=== PATIENT | female | born 1990 | race American Indian/Alaskan Native ===

== ENCOUNTER 2016-08-08 13:55 | Emergency (ER) | payer SELFPAY ==
--- NOTE | 2016-08-08 18:06 | Emergency Department Report ---
ED ENT HPI - General Chief complaint: Sore Throat Stated complaint: SORE THROAT /SWOLLEN Time Seen by Provider: 08/08/16 18:02 Source: patient Mode of arrival: Ambulatory Limitations: No Limitations - History of Present Illness -: Gradual Location: throat Severity scale (0 -10): 5 Quality: burning - Related Data Previous Rx's Medication Instructions Recorded Last Taken Type Promethazine [Phenergan TAB] 25 mg PO Q6HR PRN #15 tab 08/08/16 Unknown Rx RX: Amoxicillin [Amoxicillin TAB] 875 mg PO BID #20 tablet 08/08/16 Unknown Rx RX: Prednisone [predniSONE] 50 mg PO QDAY #5 tab 08/08/16 Unknown Rx Allergies Allergy/AdvReac Type Severity Reaction Status Date / Time No Known Allergies Allergy Verified 08/08/16 15:10 ED Dental HPI - General Chief complaint: Sore Throat Stated complaint: SORE THROAT /SWOLLEN Time Seen by Provider: 08/08/16 18:02 Source: patient Mode of arrival: Ambulatory Limitations: No Limitations - History of Present Illness MD complaint: sore throat -: Gradual Severity: moderate Quality: burning Worsens with: swallowing Dental Associated Symptons: Yes: Headache, Sore Throat - Related Data Previous Rx's Medication Instructions Recorded Last Taken Type Promethazine [Phenergan TAB] 25 mg PO Q6HR PRN #15 tab 08/08/16 Unknown Rx RX: Amoxicillin [Amoxicillin TAB] 875 mg PO BID #20 tablet 08/08/16 Unknown Rx RX: Prednisone [predniSONE] 50 mg PO QDAY #5 tab 08/08/16 Unknown Rx Allergies Allergy/AdvReac Type Severity Reaction Status Date / Time No Known Allergies Allergy Verified 08/08/16 15:10 ED Review of Systems ROS: Stated complaint: SORE THROAT /SWOLLEN Other details as noted in HPI Constitutional: chills, fever, malaise Eyes: as per HPI ENT: throat pain Respiratory: no symptoms reported Cardiovascular: as per HPI Endocrine: no symptoms reported Gastrointestinal: nausea. denies: vomiting Neurological: headache. denies: abnormal gait, vertigo ED Past Medical Hx - Past Medical History Previous Medical History?: No - Surgical History Past Surgical History?: No - Social History Smoking Status: Former Smoker Substance Use Type: None - Medications Home Medications: Home Medications Medication Instructions Recorded Confirmed Last Taken Type Promethazine [Phenergan TAB] 25 mg PO Q6HR PRN #15 tab 08/08/16 Unknown Rx RX: Amoxicillin [Amoxicillin TAB] 875 mg PO BID #20 tablet 08/08/16 Unknown Rx RX: Prednisone [predniSONE] 50 mg PO QDAY #5 tab 08/08/16 Unknown Rx ED Physical Exam - General Limitations: No Limitations General appearance: alert, in no apparent distress - Head Head exam: Present: atraumatic, normocephalic - Eye Eye exam: Present: normal appearance - ENT ENT exam: Present: mucous membranes moist - Expanded ENT Exam Expanded Throat exam: Positive: tonsillar erythema, tonsillar exudate. Negative: R peritonsillar mass, L peritonsillar mass - Neck Neck exam: Present: normal inspection - Respiratory Respiratory exam: Present: normal lung sounds bilaterally. Absent: respiratory distress - Cardiovascular Cardiovascular Exam: Present: regular rate, normal rhythm. Absent: systolic murmur, diastolic murmur, rubs, gallop - GI/Abdominal GI/Abdominal exam: Present: soft, normal bowel sounds - Extremities Exam Extremities exam: Present: normal inspection - Back Exam Back exam: Present: normal inspection - Neurological Exam Neurological exam: Present: alert, oriented X3 - Psychiatric Psychiatric exam: Present: normal affect, normal mood - Skin Skin exam: Present: warm, dry, intact, normal color. Absent: rash ED Course Vital Signs 08/08/16 08/08/16 15:12 18:24 Temperature 99.1 F 98.6 F Pulse Rate 88 78 Respiratory 18 18 Rate Blood Pressure 146/84 Blood Pressure 121/79 [Left] O2 Sat by Pulse 99 95 Oximetry Critical care attestation.: If time is entered above; I have spent that time in minutes in the direct care of this critically ill patient, excluding procedure time. ED Disposition Clinical Impression: Tonsillitis with exudate Disposition: DISCHARGED TO HOME OR SELFCARE Is pt being admited?: No Condition: Stable Instructions: Tonsillitis (ED) Prescriptions: RX: Amoxicillin [Amoxicillin TAB] 875 mg PO BID #20 tablet RX: Prednisone [predniSONE] 50 mg PO QDAY #5 tab Promethazine [Phenergan TAB] 25 mg PO Q6HR PRN #15 tab PRN Reason: Nausea Referrals: PRIMARY CARE,MD [Primary Care Provider] - 3-5 Days Forms: Work/School Release Form(ED)
[2016-08-08] MEDS ORDERED: ROCEPHIN IM ONE (18:11)
[2016-08-08] MEDS ORDERED: XYLOCAINE 1% MPF 5 mL INFILTRATI ONE (18:11)
[2016-08-08 18:25] VITALS: BP 121/79
== END 2016-08-08 18:42 | disposition home or self-care (01) ==
LOC: ED 13:55
DX: J03.90 Acute tonsillitis, unspecified (principal); Z87.891 Personal history of nicotine dependence
CPT/HCPCS: 96372; 99282; J0696

== ENCOUNTER 2016-11-09 11:59 | Emergency (ER) | payer OTHER ==
[2016-11-09] MEDS ORDERED: DUONEB 0.5 MG-3 MG/3 ML SOLN IH ONE (14:11)
--- NOTE | 2016-11-09 14:16 | Emergency Department Report ---
ED General Adult HPI - General Chief complaint: Upper Respiratory Infection Stated complaint: WEAKNESS/NAUSEA/CHEST CONGESTION Time Seen by Provider: 11/09/16 13:49 Source: patient Mode of arrival: Ambulatory Limitations: No Limitations - History of Present Illness Initial comments: PT c/o cough and congestion x 1 week. PT states she had gradually been feeling more fatigued. PT states she has been coughing up green sputum. 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 PT states yesterday she could only work half a day. PT states last night she slept 13 hours and that is when she thought she should seek medical treatment. PT states she has a hx of bronchitis and she can hear herself wheeze. PT has a hx of tobacco abuse but states she quit a while ago. Complaint: c/c/c Onset/Timin -: Gradual, week(s) Location: chest Severity scale (0 -10): 5 Consistency: constant Improves with: none Worsens with: other (working ) Associated Symptoms: denies: fever/chills, nausea/vomiting, shortness of breath Treatments Prior to Arrival: none - Related Data Previous Rx's Medication Instructions Recorded Last Taken Type Albuterol Sulfate [Ventolin HFA] 2 puff IH Q4H PRN #1 hfa.aer.ad 11/09/16 Unknown Rx Benzonatate [Tessalon Perles] 100 mg PO Q8HR PRN #12 capsule 11/09/16 Unknown Rx Sulfamethoxazole/Trimethoprim 1 each PO BID #14 tablet 11/09/16 Unknown Rx [Bactrim DS TAB] Allergies Allergy/AdvReac Type Severity Reaction Status Date / Time No Known Allergies Allergy Verified 11/09/16 12:25 ED Review of Systems ROS: Stated complaint: WEAKNESS/NAUSEA/CHEST CONGESTION Other details as noted in HPI Comment: All other systems reviewed and negative Constitutional: malaise, other (fatigue ). denies: fever ENT: congestion. denies: throat pain Respiratory: cough, wheezing. denies: shortness of breath Endocrine: increased urine. denies: increased thirst (pt states she drinks a lot of water because she works outside ) Gastrointestinal: nausea. denies: abdominal pain, vomiting Genitourinary: frequency. denies: dysuria, abnormal menses (but states she could be ) Musculoskeletal: denies: back pain ED Past Medical Hx - Past Medical History Previous Medical History?: No - Surgical History Past Surgical History?: No - Social History Smoking Status: Former Smoker Substance Use Type: None - Medications Home Medications: Home Medications Medication Instructions Recorded Confirmed Last Taken Type Albuterol Sulfate [Ventolin HFA] 2 puff IH Q4H PRN #1 hfa.aer.ad 11/09/16 Unknown Rx Benzonatate [Tessalon Perles] 100 mg PO Q8HR PRN #12 capsule 11/09/16 Unknown Rx Sulfamethoxazole/Trimethoprim 1 each PO BID #14 tablet 11/09/16 Unknown Rx [Bactrim DS TAB] ED Physical Exam - General Limitations: No Limitations General appearance: alert, in no apparent distress - Head Head exam: Present: atraumatic, normocephalic, normal inspection, other (no sinus tenderness ) - Eye Eye exam: Present: normal appearance, PERRL, EOMI. Absent: conjunctival injection - ENT ENT exam: Present: normal exam, normal orophraynx, mucous membranes moist, TM's normal bilaterally, normal external ear exam - Neck Neck exam: Present: normal inspection, full ROM - Respiratory Respiratory exam: Present: rhonchi (LLL ), decreased breath sounds (RLL ). Absent: respiratory distress, wheezes, chest wall tenderness, accessory muscle use - Expanded Respiratory Exam Expanded Location: Rhonchi: Left, Lower, Decreased Breath Sounds: Right, Lower - Cardiovascular Cardiovascular Exam: Present: regular rate, normal rhythm, normal heart sounds - GI/Abdominal GI/Abdominal exam: Present: soft. Absent: tenderness - Extremities Exam Extremities exam: Present: normal inspection, full ROM - Back Exam Back exam: Present: normal inspection, full ROM. Absent: tenderness, CVA tenderness (R), CVA tenderness (L), muscle spasm, paraspinal tenderness - Neurological Exam Neurological exam: Present: alert, oriented X3, CN II-XII intact, normal gait - Psychiatric Psychiatric exam: Present: normal affect, normal mood - Skin Skin exam: Present: warm, dry, intact ED Course Vital Signs 11/09/16 11/09/16 11/09/16 12:25 14:46 14:53 Temperature 98.7 F Pulse Rate 79 Pulse Rate [ 82 80 Anterior Bilateral Throughout] Respiratory 18 Rate Respiratory 20 18 Rate [Anterior Bilateral Throughout] Blood Pressure 133/68 Blood Pressure [Left] O2 Sat by Pulse 100 Oximetry 11/09/16 16:18 Temperature 97.8 F Pulse Rate 85 Pulse Rate [ Anterior Bilateral Throughout] Respiratory 16 Rate Respiratory Rate [Anterior Bilateral Throughout] Blood Pressure Blood Pressure 118/69 [Left] O2 Sat by Pulse 100 Oximetry - Reevaluation(s) Reevaluation #1: 11/09/16 14:17 PT aware of plan of care. No questions at this time. Reevaluation #2: 11/09/16 16:07 PT aware of xr and lab results. PT states she is feeling better sp neb. pt's lung sounds improved. pt given strict return precautions. PT has no questions at this time. - Pulse Oximetry Interpretation Digit-Finger Initial Pulse Oximetry Readin Actions Taken: none ED Medical Decision Making - Radiology Data Radiology results: report reviewed CXR_ NAP - Differential Diagnosis pna, bronchitis, uti, Critical Care Time: No Critical care attestation.: If time is entered above; I have spent that time in minutes in the direct care of this critically ill patient, excluding procedure time. ED Disposition Clinical Impression: Acute bronchitis Qualifiers: Bronchitis organism: unspecified organism Qualified Code(s): J20.9 - Acute bronchitis, unspecified UTI (urinary tract infection) Qualifiers: Urinary tract infection type: site unspecified Hematuria presence: without hematuria Qualified Code(s): N39.0 - Urinary tract infection, site not specified Disposition: - TO HOME OR SELFCARE Is pt being admited?: No Does the pt Need Aspirin: No Condition: Stable Instructions: Urinary Tract Infection in Women (ED), Acute Bronchitis (ED) Additional Instructions: rest increase fluids return to ed if worsening, vomiting, back pain, fevers or concerns Prescriptions: Albuterol Sulfate [Ventolin HFA] 2 puff IH Q4H PRN #1 hfa.aer.ad PRN Reason: Shortness Of Breath Benzonatate [Tessalon Perles] 100 mg PO Q8HR PRN #12 capsule PRN Reason: Cough Sulfamethoxazole/Trimethoprim [Bactrim DS TAB] 1 each PO BID #14 tablet Referrals: PRIMARY CARE, [Primary Care Provider] - 3-5 Days CRISTIANE CHAN MD [Staff Physician] - 3-5 Days [facility] [Outside] - 3-5 Days Forms: Work/School Release Form(ED) Time of Disposition: 16:10
[2016-11-09 14:39] LABS: Bacteria,Urine 1+ /HPF (Negative); Bilirubin,Urine NEG (Negative); Blood,Urine NEG (Negative); Ketones,Urine NEG (Negative); Leukocyte Esterase,Urine LG (Negative); Mucus,Urine 2+ /HPF; Nitrite,Urine NEG (Negative); Protein,Urine <15 mg/dL mg/dL (Negative); Urobilinogen,Urine < 2.0 mg/dL (<2.0)
--- NOTE | 2016-11-09 16:04 | XRay Report ---
FINAL REPORT EXAM: XR CHEST ROUTINE 2V HISTORY: productive cough, rhonchi TECHNIQUE: 2 view examination of the chest PRIORS: None FINDINGS: Slight thoracic spine curvature with lower right apex. Nonspecific straightening of the thoracic kyphosis. There is no visible pulmonary consolidation, pleural effusion, or pneumothorax. Cardiac silhouette size is normal without vascular congestion. No visible acute pathology in the regional skeleton. IMPRESSION: No evidence of acute cardiopulmonary disease
[2016-11-09 16:19] VITALS: BP 118/69
== END 2016-11-09 16:21 | disposition home or self-care (01) ==
LOC: ED 11:59
DX: J20.9 Acute bronchitis, unspecified (principal); N39.0 Urinary tract infection, site not specified; Z87.891 Personal history of nicotine dependence
CPT/HCPCS: 71020; 81001; 81025; 94640; 99284

== ENCOUNTER 2017-12-02 18:40 | Emergency (ER) | payer OTHER ==
[2017-12-02 19:09] VITALS: BP 155/73
[2017-12-03] MEDS ORDERED: BENADRYL PO ONE (00:14)
[2017-12-03] MEDS ORDERED: REGLAN PO ONE (00:14)
[2017-12-03] MEDS ORDERED: ULTRAM PO ONE (00:14)
[2017-12-03] MEDS ORDERED: DECADRON IM ONE (00:14)
--- NOTE | 2017-12-03 00:49 | Emergency Department Report ---
ED Headache HPI - General Chief Complaint: Headache Stated Complaint: CHRONIC HEAD ACHE Time Seen by Provider: 12/03/17 00:14 Source: patient, RN notes reviewed - History of Present Illness Initial Comments: Patient's 27-year-old Afro-[place] female who presents for tension headache 1 week headache is intermittent for 10 pain with mild photophobia and nausea no vomiting no fever chills no dizziness or lightheadedness. Patient does have a history of headaches similar in the past generally treated with NSAIDs however not improving symptoms at this time. Timing/Duration: 1 week Quality: moderate Head Injury Location: frontal Recent Head Trauma: frequent headaches, chronic headaches Modifying Factors: improves with: other Associated Symptoms: fatigue, facial pain, fever/chills Allergies/Adverse Reactions: Allergies No Known Allergies Allergy (Verified 11/09/16 12:25) Home Medications: Ambulatory Orders Albuterol Sulfate [Ventolin HFA] 2 puff IH Q4H PRN #1 hfa.aer.ad 11/09/16 Benzonatate [Tessalon Perles] 100 mg PO Q8HR PRN #12 capsule 11/09/16 Sulfamethoxazole/Trimethoprim [Bactrim DS TAB] 1 each PO BID #14 tablet Metoclopramide [Reglan] 10 mg PO TID PRN #21 tab 12/03/17 diphenhydrAMINE [Benadryl CAP] 25 mg PO Q6HR PRN #21 capsule 12/03/17 traMADol [Ultram] 50 mg PO Q6HR PRN #15 tablet 12/03/17 ED Review of Systems ROS: Stated complaint: CHRONIC HEAD ACHE Other details as noted in HPI Constitutional: denies: chills, fever Eyes: denies: eye pain, eye discharge, vision change ENT: denies: ear pain, throat pain Respiratory: denies: cough, shortness of breath, wheezing Cardiovascular: denies: chest pain, palpitations Endocrine: no symptoms reported Gastrointestinal: vomiting, constipation, hematemesis, melena, hematochezia, other. denies: abdominal pain, nausea, diarrhea Genitourinary: denies: urgency, dysuria, discharge Musculoskeletal: denies: back pain, joint swelling, arthralgia Skin: denies: rash, lesions Neurological: denies: headache, weakness, paresthesias Psychiatric: denies: anxiety, depression Hematological/Lymphatic: denies: easy bleeding, easy bruising ED Past Medical Hx - Past Medical History Additional medical history: preeclampsia - Surgical History Past Surgical History?: No - Social History Smoking Status: Former Smoker Substance Use Type: None - Medications Home Medications: Home Medications Medication Instructions Recorded Confirmed Last Taken Type Albuterol Sulfate [Ventolin HFA] 2 puff IH Q4H PRN #1 hfa.aer.ad 11/09/16 Unknown Rx Benzonatate [Tessalon Perles] 100 mg PO Q8HR PRN #12 capsule 11/09/16 Unknown Rx Sulfamethoxazole/Trimethoprim 1 each PO BID #14 tablet 11/09/16 Unknown Rx [Bactrim DS TAB] Metoclopramide [Reglan] 10 mg PO TID PRN #21 tab 12/03/17 Unknown Rx diphenhydrAMINE [Benadryl CAP] 25 mg PO Q6HR PRN #21 capsule 12/03/17 Unknown Rx traMADol [Ultram] 50 mg PO Q6HR PRN #15 tablet 12/03/17 Unknown Rx ED Physical Exam - General Limitations: No Limitations General appearance: alert, in no apparent distress - Head Head exam: Present: normocephalic, normal inspection - Eye Eye exam: Present: normal appearance, PERRL, EOMI Pupils: Present: normal accommodation - ENT ENT exam: Present: normal exam, normal orophraynx, mucous membranes moist, TM's normal bilaterally, normal external ear exam - Expanded ENT Exam Expanded Mouth exam: Present: tongue normal. Absent: tongue elevation Throat exam: Positive: normal inspection. Negative: tonsillar erythema, tonsillomegaly, tonsillar exudate, R peritonsillar mass, L peritonsillar mass - Neck Neck exam: Present: normal inspection, tenderness, full ROM. Absent: meningismus, lymphadenopathy - Respiratory Respiratory exam: Present: normal lung sounds bilaterally. Absent: respiratory distress - Cardiovascular Cardiovascular Exam: Present: regular rate, normal rhythm. Absent: systolic murmur, diastolic murmur, rubs, gallop - GI/Abdominal GI/Abdominal exam: Present: soft, normal bowel sounds. Absent: distended, tenderness, guarding, rebound, rigid, organomegaly, mass, bruit, pulsatile mass , hernia - Rectal Rectal exam: Present: deferred - External exam: Present: normal external exam - Extremities Exam Extremities exam: Present: normal inspection - Back Exam Back exam: Present: normal inspection, full ROM, muscle spasm, rash noted. Absent: tenderness, CVA tenderness (R), CVA tenderness (L) - Neurological Exam Neurological exam: Present: alert, oriented X3, CN II-XII intact, normal gait, reflexes normal. Absent: motor sensory deficit - Expanded Neurological Exam Expanded Patient oriented to: Present: person, place, time Speech: Present: fluid speech Cranial nerves: EOM's Intact: Normal, Gag Reflex: Normal, Tongue Deviation: Normal, Nystagmus: Normal, Facial Sensation: Normal, Facial Palsy with Forehead Movement: Normal, Facial Palsy without Forehead Movement: Normal Cerebellar function: Finger to Nose: Normal, Heel to Chambers: Normal, Romberg: Normal Upper motor neuron: Karan Neglect: Normal, Pronator Drift: Normal, Babinski Sign : Normal, Sensory Extinction: Normal Sensory exam: Upper Extremity Light Touch: Normal, Upper Extremity Pin Prick: Normal, Upper Extremity Temperature: Normal, UE 2 Point Discrimination: Normal, Lower Extremity Light Touch: Normal, Lower Extremity Pin Prick: Normal, Lower Extremity Temperature: Normal, LE 2 Point Discrimination: Normal Motor strength exam: RUE: 5, LUE: 5, RLE: 5, LLE: 5 DTR: bicep (R): 2+, bicep (L): 2+, tricep (R): 2+, tricep (L): 2+, knee (R): 2+ , knee (L): 2+, ankle (R): 2+, ankle (L): 2+ Best Eye Response (Rachel): (4) open spontaneously Best Motor Response (Cherry): (6) obeys commands Best Verbal Response (Rachel): (5) oriented Cherry Total: 15 - Psychiatric Psychiatric exam: Present: normal affect, normal mood - Skin Skin exam: Present: warm, dry, intact, normal color. Absent: rash ED Course Vital Signs 12/02/17 19:05 Temperature 98.5 F Pulse Rate 86 Respiratory 18 Rate Blood Pressure 155/73 O2 Sat by Pulse 98 Oximetry ED Medical Decision Making - Medical Decision Making . He was improved is no dizziness no lightheadedness no fever no chills no nausea plan DC home prescription for Benadryl Reglan Ultram pt will follow up wtih pcp in 2-3 days Critical care attestation.: If time is entered above; I have spent that time in minutes in the direct care of this critically ill patient, excluding procedure time. ED Disposition Clinical Impression: Headache Qualifiers: Headache type: tension-type Headache chronicity pattern: episodic headache Intractability: intractable Qualified Code(s): G44.211 - Episodic tension-type headache, intractable Disposition: - TO HOME OR SELFCARE Is pt being admited?: No Does the pt Need Aspirin: No Condition: Good Instructions: Tension Headache (ED), Migraine Headache (ED) Prescriptions: diphenhydrAMINE [Benadryl CAP] 25 mg PO Q6HR PRN #21 capsule PRN Reason: Headache Metoclopramide [Reglan] 10 mg PO TID PRN #21 tab PRN Reason: Headache traMADol [Ultram] 50 mg PO Q6HR PRN #15 tablet PRN Reason: Pain Referrals: [facility] [Outside] - 3-5 Days Forms: Work/School Release Form(ED) Time of Disposition: 01:06
== END 2017-12-03 02:10 | disposition home or self-care (01) ==
LOC: ED 18:40
DX: G44.211 Episodic tension-type headache, intractable (principal); R11.0 Nausea; Z87.891 Personal history of nicotine dependence
CPT/HCPCS: 96372; 99282; J1100

== ENCOUNTER 2018-07-03 19:01 | Emergency (ER) | payer OTHER, MEDICAID ==
[2018-07-03 20:12] LABS: Basophils # (Auto) 0.1 K/mm3 (0.0-0.1); Basophils % (Auto) 0.5 % (0.0-1.8); Eosinophils % (Auto) 0.2 % (0.0-4.3); Hematocrit 36.7 % (30.3-42.9); Lymphocytes # (Auto) 2.5 K/mm3 (1.2-5.4); Lymphocytes % (Auto) 20.8 % (13.4-35.0); Mean Corpuscular HGB Conc 36 % (30-34); Mean Corpuscular Volume 85 fl (79-97); Monocytes % (Auto) 8.7 % (0.0-7.3); Platelet Count 307 K/mm3 (140-440); Red Blood Count 4.34 M/mm3 (3.65-5.03); Red Cell Distribution Width 13.7 % (13.2-15.2)
[2018-07-03 20:45] LABS: BUN/Creatinine Ratio 16; Blood Urea Nitrogen 11 mg/dL (7-17); Calcium 9.2 mg/dL (8.4-10.2); Hemolysis Index 3
--- NOTE | 2018-07-03 20:55 | Emergency Department Report ---
ED N/V/D HPI - General Chief complaint: Nausea/Vomiting/Diarrhea Stated complaint: 6WKS /VOMIITNG/DIZZY Time Seen by Provider: 07/03/18 20:54 Source: patient, family Mode of arrival: Ambulatory Limitations: No Limitations - History of Present Illness Initial comments: This is a 28-year-old female here with her who complained of nausea, v omiting 1 yesterday and 2 today. She says she has constant nausea since yesterday. She is reporting dizziness and weakness. Denies any fever or chills. Denies any back pain. Denies any abdominal pain. Denies any vaginal bleeding or discharge. Denies any urinary burning, frequency or urgency. Patient reports that she is 6 weeks and she has an appointment with my [facility] on 07/14 2018. She says she did not take any medication. Pain is 0/10. MD complaint: nausea, vomiting Onset/Timin -: days(s) Description of Vomiting: food contents Associated Abdominal Pain: No Pain Scale: 0 Worsens with: other (nausea and vomiting without any pain) Context: other ( at 6 weeks) Associated Symptoms: loss of appetite, nausea/vomiting. denies: myalgias, chest pain, cough, diaphoresis, fever/chills, headaches, malaise, rash, dysuria, shortness of breath, syncope, weakness - Related Data Previous Rx's Medication Instructions Recorded Last Taken Type Albuterol Sulfate [Ventolin HFA] 2 puff IH Q4H PRN #1 hfa.aer.ad 11/09/16 Unknown Rx Benzonatate [Tessalon Perles] 100 mg PO Q8HR PRN #12 capsule 11/09/16 Unknown Rx Sulfamethoxazole/Trimethoprim 1 each PO BID #14 tablet 11/09/16 Unknown Rx [Bactrim DS TAB] Metoclopramide [Reglan] 10 mg PO TID PRN #21 tab 12/03/17 Unknown Rx diphenhydrAMINE [Benadryl CAP] 25 mg PO Q6HR PRN #21 capsule 12/03/17 Unknown Rx traMADol [Ultram] 50 mg PO Q6HR PRN #15 tablet 12/03/17 Unknown Rx ALBUTEROL Inhaler(NF) [VENTOLIN 2 puff IH Q6H PRN #1 device 05/03/18 Unknown Rx Inhaler(NF)] Azithromycin [Zithromax Z-HARLEY] 250 mg PO DAILY #6 tablet 05/03/18 Unknown Rx Loratadine 10 mg PO DAILY 14 Days #14 tablet 05/03/18 Unknown Rx predniSONE [Deltasone] 3 tab PO QDAY 4 Days #12 tab 05/03/18 Unknown Rx Ondansetron [Zofran Odt] 4 mg PO Q8HR PRN #15 tab.rapdis 07/04/18 Unknown Rx cephALEXin [Keflex] 500 mg PO Q12HR 10 Days #20 cap 07/04/18 Unknown Rx Allergies Allergy/AdvReac Type Severity Reaction Status Date / Time No Known Allergies Allergy Verified 11/09/16 12:25 ED Review of Systems ROS: Stated complaint: 6WKS /VOMIITNG/DIZZY Other details as noted in HPI Constitutional: malaise. denies: chills, fever ENT: denies: throat pain, congestion Respiratory: denies: cough, shortness of breath, wheezing Cardiovascular: denies: chest pain, palpitations, edema, syncope Gastrointestinal: nausea, vomiting. denies: abdominal pain, diarrhea, constipation, hematemesis, hematochezia Genitourinary: other (no vaginal bleed and). denies: urgency, dysuria, frequency, hematuria, discharge Musculoskeletal: denies: back pain, joint swelling, arthralgia, myalgia Skin: denies: rash Neurological: denies: headache, numbness, paresthesias, abnormal gait, vertigo ED Past Medical Hx - Past Medical History Previous Medical History?: Yes Additional medical history: preeclampsia. bronchitis - Surgical History Past Surgical History?: No - Family History Family history: hypertension - Social History Smoking Status: Former Smoker Substance Use Type: None - Medications Home Medications: Home Medications Medication Instructions Recorded Confirmed Last Taken Type Albuterol Sulfate [Ventolin HFA] 2 puff IH Q4H PRN #1 hfa.aer.ad 11/09/16 Unknown Rx Benzonatate [Tessalon Perles] 100 mg PO Q8HR PRN #12 capsule 11/09/16 Unknown Rx Sulfamethoxazole/Trimethoprim 1 each PO BID #14 tablet 11/09/16 Unknown Rx [Bactrim DS TAB] Metoclopramide [Reglan] 10 mg PO TID PRN #21 tab 12/03/17 Unknown Rx diphenhydrAMINE [Benadryl CAP] 25 mg PO Q6HR PRN #21 capsule 12/03/17 Unknown Rx traMADol [Ultram] 50 mg PO Q6HR PRN #15 tablet 12/03/17 Unknown Rx ALBUTEROL Inhaler(NF) [VENTOLIN 2 puff IH Q6H PRN #1 device 05/03/18 Unknown Rx Inhaler(NF)] Azithromycin [Zithromax Z-HARLEY] 250 mg PO DAILY #6 tablet 05/03/18 Unknown Rx Loratadine 10 mg PO DAILY 14 Days #14 tablet 05/03/18 Unknown Rx predniSONE [Deltasone] 3 tab PO QDAY 4 Days #12 tab 05/03/18 Unknown Rx Ondansetron [Zofran Odt] 4 mg PO Q8HR PRN #15 tab.rapdis 07/04/18 Unknown Rx cephALEXin [Keflex] 500 mg PO Q12HR 10 Days #20 cap 07/04/18 Unknown Rx ED Physical Exam - General Limitations: No Limitations General appearance: alert, in no apparent distress - Head Head exam: Present: atraumatic, normocephalic, normal inspection - Eye Eye exam: Present: normal appearance, PERRL, EOMI Pupils: Present: normal accommodation - ENT ENT exam: Present: normal orophraynx, mucous membranes dry, TM's normal bilaterally, normal external ear exam - Neck Neck exam: Present: normal inspection, full ROM, other (no C-spine tenderness). Absent: tenderness, lymphadenopathy - Respiratory Respiratory exam: Present: normal lung sounds bilaterally. Absent: respiratory distress, chest wall tenderness - Cardiovascular Cardiovascular Exam: Present: regular rate, normal rhythm, normal heart sounds - GI/Abdominal GI/Abdominal exam: Present: soft, normal bowel sounds. Absent: distended, tenderness, guarding, rebound, rigid, organomegaly, mass, bruit, pulsatile mass - Extremities Exam Extremities exam: Present: normal inspection, full ROM, normal capillary refill, other (No cce. + 2 pulses in all extremities, no neurovascular compromise). Absent: tenderness, pedal edema, joint swelling, calf tenderness - Back Exam Back exam: Present: normal inspection, full ROM, other (ambulates without any difficulties). Absent: tenderness, CVA tenderness (R), CVA tenderness (L), muscle spasm, paraspinal tenderness, vertebral tenderness, rash noted - Neurological Exam Neurological exam: Present: alert, oriented X3, normal gait, reflexes normal. Absent: motor sensory deficit - Psychiatric Psychiatric exam: Present: normal affect, normal mood - Skin Skin exam: Present: warm, dry, intact, normal color. Absent: rash ED Course Vital Signs 07/03/18 19:20 Temperature 99 F Pulse Rate 83 Respiratory 14 Rate Blood Pressure 130/72 O2 Sat by Pulse 100 Oximetry - Reevaluation(s) Reevaluation #1: 07/03/18 22:43 Patient started on IV fluid normal saline 2 L. She is currently getting her second liter of IV fluid. She received Zofran 4 mg IV and she reports she is feeling better. Patient with urinary tract infection and will be given Rocephin 1 g IV and she had temperature was 99 when she came in so she will be getting in Tylenol 500 mg by mouth. By mouth challenge started and patient tolerated well. Reevaluation #2: 07/03/18 23:52 patient received Zofran 4 mg IV and she is able to tolerate by mouth juice. Patient received her Rocephin IV and tolerated well. She says she is feeling a lot better. Patient was also given Tylenol for low-grade temp of 99. ED Medical Decision Making - Lab Data Result diagrams: 07/03/18 19:44 07/03/18 19:44 Lab Results 07/03/18 07/03/18 07/03/18 Range/Units 19:44 19:44 19:44 WBC 12.1 H (4.5-11.0) K/mm3 RBC 4.34 (3.65-5.03) M/mm3 Hgb 13.0 (10.1-14.3) gm/dl Hct 36.7 (30.3-42.9) % MCV 85 (79-97) fl MCH 30 (28-32) pg MCHC 36 H (30-34) % RDW 13.7 (13.2-15.2) % Plt Count 307 (140-440) K/mm3 Lymph % (Auto) 20.8 (13.4-35.0) % [place] % (Auto) 8.7 H (0.0-7.3) % Eos % (Auto) 0.2 (0.0-4.3) % Baso % (Auto) 0.5 (0.0-1.8) % Lymph # 2.5 (1.2-5.4) K/mm3 [place] # 1.0 H (0.0-0.8) K/mm3 Eos # 0.0 (0.0-0.4) K/mm3 Baso # 0.1 (0.0-0.1) K/mm3 Seg Neutrophils % 69.8 (40.0-70.0) % Seg Neutrophils # 8.4 H (1.8-7.7) K/mm3 Sodium 135 L (137-145) mmol/L Potassium 4.0 (3.6-5.0) mmol/L Chloride 96.6 L (98-107) mmol/L Carbon Dioxide 25 (22-30) mmol/L Anion Gap 17 mmol/L BUN 11 (7-17) mg/dL Creatinine 0.7 (0.7-1.2) mg/dL Estimated GFR > 60 ml/min BUN/Creatinine Ratio 16 % Glucose 92 (65-100) mg/dL Calcium 9.2 (8.4-10.2) mg/dL HCG, Quant 70252 H (0-4) mIU/mL Urine Color (Yellow) Urine Turbidity (Clear) Urine pH (5.0-7.0) Ur Specific [place] (1.003-1.030) Urine Protein (Negative) mg/dL Urine Glucose (UA) (Negative) mg/dL Urine Ketones (Negative) mg/dL Urine Blood (Negative) Urine Nitrite (Negative) Urine Bilirubin (Negative) Urine Urobilinogen (<2.0) mg/dL Ur Leukocyte Esterase (Negative) Urine WBC (Auto) (0.0-6.0) /HPF Urine RBC (Auto) (0.0-6.0) /HPF U Epithel Cells (Auto) (0-13.0) /HPF Urine Bacteria (Auto) (Negative) /HPF Urine Mucus /HPF Urine HCG, Qual (Negative) 07/03/18 07/03/18 Range/Units 20:58 20:58 WBC (4.5-11.0) K/mm3 RBC (3.65-5.03) M/mm3 Hgb (10.1-14.3) gm/dl Hct (30.3-42.9) % MCV (79-97) fl MCH (28-32) pg MCHC (30-34) % RDW (13.2-15.2) % Plt Count (140-440) K/mm3 Lymph % (Auto) (13.4-35.0) % [place] % (Auto) (0.0-7.3) % Eos % (Auto) (0.0-4.3) % Baso % (Auto) (0.0-1.8) % Lymph # (1.2-5.4) K/mm3 [place] # (0.0-0.8) K/mm3 Eos # (0.0-0.4) K/mm3 Baso # (0.0-0.1) K/mm3 Seg Neutrophils % (40.0-70.0) % Seg Neutrophils # (1.8-7.7) K/mm3 Sodium (137-145) mmol/L Potassium (3.6-5.0) mmol/L Chloride (98-107) mmol/L Carbon Dioxide (22-30) mmol/L Anion Gap mmol/L BUN (7-17) mg/dL Creatinine (0.7-1.2) mg/dL Estimated GFR ml/min BUN/Creatinine Ratio % Glucose (65-100) mg/dL Calcium (8.4-10.2) mg/dL HCG, Quant (0-4) mIU/mL Urine Color Yellow (Yellow) Urine Turbidity Cloudy (Clear) Urine pH 6.0 (5.0-7.0) Ur Specific [place] 1.025 (1.003-1.030) Urine Protein <15 mg/dl (Negative) mg/dL Urine Glucose (UA) Neg (Negative) mg/dL Urine Ketones Neg (Negative) mg/dL Urine Blood Neg (Negative) Urine Nitrite Pos (Negative) Urine Bilirubin Neg (Negative) Urine Urobilinogen < 2.0 (<2.0) mg/dL Ur Leukocyte Esterase Lg (Negative) Urine WBC (Auto) 78.0 H (0.0-6.0) /HPF Urine RBC (Auto) 16.0 (0.0-6.0) /HPF U Epithel Cells (Auto) 14.0 H (0-13.0) /HPF Urine Bacteria (Auto) 2+ (Negative) /HPF Urine Mucus Few /HPF Urine HCG, Qual Positive A (Negative) Urine culture sent - Medical Decision Making This is a 28-year-old female here for nausea and vomiting that started yesterday. She is 6 weeks per [place] [address]. Patient has not have any abdominal pain or vomiting while in the emergency room. She has not had any vaginal bleeding or complaining of discharge and she has an appointment with my [facility] on 07/14/2018. She is taking vitamin. Patient given IV fluid 2 L and Zofran a total of 8 mg IV in 4 mg increments in Emergency room because of mild dehydration and her sodium was slightly low. CBC with mild elevation in his white count otherwise stable. Urine is positive and her urinalysis showed positive nitrites, positive leukocyte Estrace and positive white blood cell and reports 2+ bacteria with cloudiness of urine. I discussed results of urinalysis and lab oratory results the patient and she voiced understanding. Discharged home in stable condition with prescription for Zofran and Keflex - Differential Diagnosis hyperemesis gravidarum, pyelonephritis, acute cystitis Critical care attestation.: If time is entered above; I have spent that time in minutes in the direct care of this critically ill patient, excluding procedure time. ED Disposition Clinical Impression: Nausea and vomiting during prior to 22 weeks gestation, Dehydration, mild, Acute cystitis without hematuria Disposition: DC-01 TO HOME OR SELFCARE Is pt being admited?: No Does the pt Need Aspirin: No Condition: Stable Instructions: Morning Sickness (ED), Dehydration (ED), Urinary Tract Infection in Women (ED), Acute Nausea and Vomiting (ED) Additional Instructions: Take Keflex for urinary tract infection as instructed Increase her fluid intake to include Pedialyte to prevent dehydration. Avoid spicy food, carbonated beverages or acidic beverages. Utilizing a diet to include bananas, rice, applesauce and toast over the next 3 days to rest his stomach. Take Zofran as prescribed for nausea If you condition worsens, return to emergency room otherwise follow-up with my [facility] on 07/12/2018 as scheduled. Prescriptions: cephALEXin [Keflex] 500 mg PO Q12HR 10 Days #20 cap Ondansetron [Zofran Odt] 4 mg PO Q8HR PRN #15 tab.rapdis PRN Reason: for nausea and vomiting Referrals: [facility] [Provider Group] - 07/06/18 Forms: Accompanied Note, Work/School Release Form(ED)
[2018-07-03] MEDS ORDERED: ZOFRAN IV ONE ×2 (20:57→23:06)
[2018-07-03] MEDS ORDERED: NACL 0.9% 1000 ML 1,000 ML IV ONE ×2 (20:57)
[2018-07-03 22:22] LABS: HCG Qualitative,Urine Positive (Negative)
[2018-07-03 22:23] LABS: Bacteria,Urine 2+ /HPF (Negative); Bilirubin,Urine NEG (Negative); Blood,Urine NEG (Negative); Color,Urine Yellow (Yellow); Mucus,Urine FEW /HPF; Protein,Urine <15 mg/dL mg/dL (Negative); Urobilinogen,Urine < 2.0 mg/dL (<2.0)
[2018-07-03] MEDS ORDERED: ROCEPHIN/NS 1 GM/50 ML 1 GM/50 ML BAG IV ONE (22:42)
[2018-07-03] MEDS ORDERED: TYLENOL PO ONE (22:43)
[2018-07-04 00:24] VITALS: BP 116/72
== END 2018-07-04 00:23 | disposition home or self-care (01) ==
LOC: ED 19:01
DX: O23.12 Infections of bladder in pregnancy, second trimester (principal); O99.282 Endocrine, nutritional and metabolic diseases complicating pregnancy, second trimester; E86.0 Dehydration; Z3A.22 22 weeks gestation of pregnancy
CPT/HCPCS: 36415; 80048; 81001; 81025; 84702; 85025; 87086; 96361; 96365; 96375; 96376; 99283; J0696; J2405; J7030; 87076; 87186

== ENCOUNTER 2018-08-06 17:22 | Emergency (ER) | payer MEDICAID, OTHER ==
[2018-08-06] MEDS ORDERED: REGLAN IV ONE (18:01)
[2018-08-06] MEDS ORDERED: NACL 0.9% 1000 ML 1,000 ML IV ONE (18:01)
--- NOTE | 2018-08-06 18:01 | Emergency Department Report ---
Blank Doc - Documentation Documentation: This is a 28-year-old female that presents with n/v. Stated is about 13 weeks . Denies any vaginal bleeding. This initial assessment/diagnostic orders/clinical plan/treatment(s) is/are subject to change based on patient's health status, clinical progression and re- assessment by fellow clinical providers in the ED. Further treatment and workup at subsequent clinical providers discretion. Patient/guardians urged not to elope from the ED as their condition may be serious if not clinically assessed and managed. Initial orders include: 1- Patient sent to [facility] for further evaluation and treatment 2- labs
[2018-08-06 18:18] LABS: Basophils # (Auto) 0.1 K/mm3 (0.0-0.1); Basophils % (Auto) 0.5 % (0.0-1.8); Lymphocytes # (Auto) 1.7 K/mm3 (1.2-5.4); Lymphocytes % (Auto) 14.3 % (13.4-35.0); Mean Corpuscular HGB Conc 36 % (30-34); Mean Corpuscular Hemoglobin 31 pg (28-32); Mean Corpuscular Volume 85 fl (79-97); Monocytes # (Auto) 0.5 K/mm3 (0.0-0.8); Monocytes % (Auto) 4.6 % (0.0-7.3); Platelet Count 320 K/mm3 (140-440); Red Blood Count 4.77 M/mm3 (3.65-5.03); Red Cell Distribution Width 14.2 % (13.2-15.2)
[2018-08-06 18:25] LABS: Hematocrit 40.7 % (30.3-42.9); Hemoglobin 14.6 gm/dl (10.1-14.3)
[2018-08-06 18:56] LABS: BUN/Creatinine Ratio 10; Blood Urea Nitrogen 6 mg/dL (7-17); Calcium 9.4 mg/dL (8.4-10.2); Hemolysis Index 3
[2018-08-06] MEDS ORDERED: TYLENOL ONE (19:11)
[2018-08-06] MEDS ORDERED: TYLENOL PO ONE (19:11)
[2018-08-06 19:42] LABS: Bacteria,Urine 2+ /HPF (Negative); Bilirubin,Urine NEG (Negative); Blood,Urine NEG (Negative); Color,Urine Amber (Yellow); Mucus,Urine 3+ /HPF
--- NOTE | 2018-08-06 21:35 | Emergency Department Report ---
ED General Adult HPI - General Chief complaint: Nausea/Vomiting/Diarrhea Stated complaint: 13WKS/VOMIT BLOOD/PAIN Time Seen by Provider: 08/06/18 18:00 Source: patient Mode of arrival: Ambulatory Limitations: No Limitations - History of Present Illness Initial comments: Pt is a 28 yo female who presents to the ED with c/o N/V that began 2 days ago. She has associated urinary frequency and constipation. she last had a BM three days ago. the patient is currently 13 weeks , has seen OB and had her first US. Her next appt is on August 11. She denies any abd pain, vaginal bleeding, vaginal discharge. she is able to keep liquids down. the patient has tried taking zofran and phenergan that was given to her by her OB without relief. Severity scale (0 -10): 10 - Related Data Previous Rx's Medication Instructions Recorded Last Taken Type Albuterol Sulfate [Ventolin HFA] 2 puff IH Q4H PRN #1 hfa.aer.ad 11/09/16 Unknown Rx Sulfamethoxazole/Trimethoprim 1 each PO BID #14 tablet 11/09/16 Unknown Rx [Bactrim DS TAB] Metoclopramide [Reglan] 10 mg PO TID PRN #21 tab 12/03/17 Unknown Rx traMADol [Ultram] 50 mg PO Q6HR PRN #15 tablet 12/03/17 Unknown Rx ALBUTEROL Inhaler(NF) [VENTOLIN 2 puff IH Q6H PRN #1 device 05/03/18 Unknown Rx Inhaler(NF)] predniSONE [Deltasone] 3 tab PO QDAY 4 Days #12 tab 05/03/18 Unknown Rx Ondansetron [Zofran Odt] 4 mg PO Q8HR PRN #15 tab.rapdis 07/04/18 Unknown Rx Glycerin 1 each RC DAILY PRN #10 supp.rect 08/06/18 Unknown Rx Nitrofurantoin [place]/M-Cryst 100 mg PO BID 7 Days #14 capsule 08/06/18 Unknown Rx [Macrobid CAP] Polyethylene Glycol 3350 [Miralax] 17 gm PO BID #1 powder 08/06/18 Unknown Rx Promethazine [Phenergan] 25 mg ME Q8HR PRN #10 supp.rect 08/06/18 Unknown Rx Allergies Allergy/AdvReac Type Severity Reaction Status Date / Time No Known Allergies Allergy Verified 11/09/16 12:25 ED Review of Systems ROS: Stated complaint: 13WKS/VOMIT BLOOD/PAIN Other details as noted in HPI Comment: All other systems reviewed and negative ED Past Medical Hx - Past Medical History Additional medical history: preeclampsia. bronchitis - Social History Smoking Status: Never Smoker Substance Use Type: None - Medications Home Medications: Home Medications Medication Instructions Recorded Confirmed Last Taken Type Albuterol Sulfate [Ventolin HFA] 2 puff IH Q4H PRN #1 hfa.aer.ad 11/09/16 Unknown Rx Sulfamethoxazole/Trimethoprim 1 each PO BID #14 tablet 11/09/16 Unknown Rx [Bactrim DS TAB] Metoclopramide [Reglan] 10 mg PO TID PRN #21 tab 12/03/17 Unknown Rx traMADol [Ultram] 50 mg PO Q6HR PRN #15 tablet 12/03/17 Unknown Rx ALBUTEROL Inhaler(NF) [VENTOLIN 2 puff IH Q6H PRN #1 device 05/03/18 Unknown Rx Inhaler(NF)] predniSONE [Deltasone] 3 tab PO QDAY 4 Days #12 tab 05/03/18 Unknown Rx Ondansetron [Zofran Odt] 4 mg PO Q8HR PRN #15 tab.rapdis 07/04/18 Unknown Rx Glycerin 1 each RC DAILY PRN #10 supp.rect 08/06/18 Unknown Rx Nitrofurantoin [place]/M-Cryst 100 mg PO BID 7 Days #14 capsule 08/06/18 Unknown Rx [Macrobid CAP] Polyethylene Glycol 3350 [Miralax] 17 gm PO BID #1 powder 08/06/18 Unknown Rx Promethazine [Phenergan] 25 mg ME Q8HR PRN #10 supp.rect 08/06/18 Unknown Rx ED Physical Exam - General Limitations: No Limitations General appearance: alert, in no apparent distress - Head Head exam: Present: atraumatic, normocephalic - Eye Eye exam: Present: normal appearance - ENT ENT exam: Present: mucous membranes moist - Respiratory Respiratory exam: Present: normal lung sounds bilaterally. Absent: respiratory distress, wheezes, rales, rhonchi, stridor, chest wall tenderness, accessory muscle use, decreased breath sounds, prolonged expiratory - Cardiovascular Cardiovascular Exam: Present: regular rate, normal rhythm, normal heart sounds. Absent: systolic murmur, rubs, gallop - GI/Abdominal GI/Abdominal exam: Present: soft, normal bowel sounds, other (consistent with ). Absent: tenderness, guarding, rebound, rigid - Back Exam Back exam: Absent: CVA tenderness (R), CVA tenderness (L) - Neurological Exam Neurological exam: Present: alert, oriented X3 - Psychiatric Psychiatric exam: Present: normal affect, normal mood - Skin Skin exam: Present: warm, dry, intact ED Course Vital Signs 08/06/18 08/06/18 17:56 21:55 Temperature 98.2 F Pulse Rate 102 H 76 Respiratory 20 18 Rate Blood Pressure 121/81 Blood Pressure 121/81 120/82 [Right] O2 Sat by Pulse 99 Oximetry ED Medical Decision Making - Lab Data Result diagrams: 08/06/18 18:04 08/06/18 18:04 Laboratory Results - last 24 hr 08/06/18 08/06/18 08/06/18 18:04 18:04 18:04 WBC 11.8 H RBC 4.77 Hgb 14.6 H Hct 40.7 MCV 85 MCH 31 MCHC 36 H RDW 14.2 Plt Count 320 Lymph % (Auto) 14.3 [place] % (Auto) 4.6 Eos % (Auto) 0.0 Baso % (Auto) 0.5 Lymph # 1.7 [place] # 0.5 Eos # 0.0 Baso # 0.1 Seg Neutrophils % 80.6 H Seg Neutrophils # 9.5 H Sodium 137 Potassium 4.3 Chloride 99.1 Carbon Dioxide 24 Anion Gap 18 BUN 6 L Creatinine 0.6 L Estimated GFR > 60 BUN/Creatinine Ratio 10 Glucose 96 Calcium 9.4 HCG, Quant 78507 H Urine Color Urine Turbidity Urine pH Ur Specific [place] Urine Protein Urine Glucose (UA) Urine Ketones Urine Blood Urine Nitrite Urine Bilirubin Urine Urobilinogen Ur Leukocyte Esterase Urine WBC (Auto) Urine RBC (Auto) U Epithel Cells (Auto) Urine Bacteria (Auto) Urine Mucus Urine Yeast (Budding) 08/06/18 19:20 WBC RBC Hgb Hct MCV MCH MCHC RDW Plt Count Lymph % (Auto) [place] % (Auto) Eos % (Auto) Baso % (Auto) Lymph # [place] # Eos # Baso # Seg Neutrophils % Seg Neutrophils # Sodium Potassium Chloride Carbon Dioxide Anion Gap BUN Creatinine Estimated GFR BUN/Creatinine Ratio Glucose Calcium HCG, Quant Urine Color [place] Urine Turbidity Cloudy Urine pH 5.0 Ur Specific [place] 1.034 H Urine Protein 100 mg/dl Urine Glucose (UA) Neg Urine Ketones 80 Urine Blood Neg Urine Nitrite Neg Urine Bilirubin Neg Urine Urobilinogen 2.0 Ur Leukocyte Esterase Lg Urine WBC (Auto) 53.0 H Urine RBC (Auto) 45.0 U Epithel Cells (Auto) 33.0 H Urine Bacteria (Auto) 2+ Urine Mucus 3+ Urine Yeast (Budding) 2+ Vital Signs 08/06/18 08/06/18 17:56 21:55 Temperature 98.2 F Pulse Rate 102 H 76 Respiratory 20 18 Rate Blood Pressure 121/81 Blood Pressure 121/81 120/82 [Right] O2 Sat by Pulse 99 Oximetry - Medical Decision Making Pt is a 28 yo female who presents to the ED with c/o N/V that began 2 days ago. She has associated urinary frequency and constipation. she last had a BM three days ago. the patient is currently 13 weeks , has seen OB and had her first US. Her next appt is on August 11. She denies any abd pain, vaginal bleeding, vaginal discharge. she is able to keep liquids down. the patient has tried taking zofran and phenergan that was given to her by her OB without relief. VSS. afebrile. labs with mildly elevated WBCs, UA shows evidence of a UTI. no abd tenderness, no CVAT. Pt given macrobid for 7 days. Pt given phenergan suppository and medications for constipation that are safe in . Advised pt to see her PCP in the next 2-3 days. And to keep her appt with her OB on August 11. Take all medication as prescribed. Return to the emergency room for any new or worsening symptoms. - Differential Diagnosis UTI, N/V, Critical care attestation.: If time is entered above; I have spent that time in minutes in the direct care of this critically ill patient, excluding procedure time. ED Disposition Clinical Impression: Nausea & vomiting Qualifiers: Vomiting type: unspecified Vomiting Intractability: non-intractable Qualified Code(s): R11.2 - Nausea with vomiting, unspecified Constipation Qualifiers: Constipation type: unspecified constipation type Qualified Code(s): K59.00 - Constipation, unspecified Qualifiers: Weeks of gestation: 13 weeks Qualified Code(s): Z3A.13 - 13 weeks gestation of Disposition: DC-01 TO HOME OR SELFCARE Is pt being admited?: No Does the pt Need Aspirin: No Condition: Stable Instructions: Morning Sickness (ED), (ED), Constipation (ED), Urinary Tract Infection in Women (ED), High Fiber Diet (ED), Acute Nausea and Vomiting (ED) Additional Instructions: Follow up with a primary care doctor in the next 2-3 days. Keep your appointment with your [facility] on august 11. Take all medication as prescribed. Return to the emergency room for any new or worsening symptoms as discussed. Prescriptions: Glycerin 1 each RC DAILY PRN #10 supp.rect PRN Reason: Constipation Nitrofurantoin [place]/M-Cryst [Macrobid CAP] 100 mg PO BID 7 Days #14 capsule Polyethylene Glycol 3350 [Miralax] 17 gm PO BID #1 powder Promethazine [Phenergan] 25 mg ME Q8HR PRN #10 supp.rect PRN Reason: Nausea And Vomiting Referrals: LYNN OKEEFE MD [Primary Care Provider] - 2-3 Days [facility] [Provider [facility]] - 3-5 Days Time of Disposition: 21:30 Print Language: CHINESE
[2018-08-06 21:56] VITALS: BP 120/82
== END 2018-08-06 21:55 | disposition home or self-care (01) ==
LOC: ED 17:22
DX: O21.9 Vomiting of pregnancy, unspecified (principal); O99.611 Diseases of the digestive system complicating pregnancy, first trimester; K59.00 Constipation, unspecified; Z3A.13 13 weeks gestation of pregnancy
CPT/HCPCS: 36415; 80048; 81001; 84702; 85025; 96361; 96374; 99283; J2765; J7030

== ENCOUNTER 2018-09-06 14:48 | Emergency (ER) | payer OTHER ==
[2018-09-06 15:30] LABS: Basophils % (Auto) 0.1 % (0.0-1.8); Hematocrit 37.5 % (30.3-42.9); Hemoglobin 12.9 gm/dl (10.1-14.3); Lymphocytes # (Auto) 0.9 K/mm3 (1.2-5.4); Lymphocytes % (Auto) 6.6 % (13.4-35.0); Mean Corpuscular HGB Conc 34 % (30-34); Mean Corpuscular Volume 87 fl (79-97); Monocytes # (Auto) 0.5 K/mm3 (0.0-0.8); Monocytes % (Auto) 3.7 % (0.0-7.3); Platelet Count 295 K/mm3 (140-440); Red Cell Distribution Width 14.4 % (13.2-15.2)
[2018-09-06] MEDS ORDERED: TYLENOL PO ONE (15:37)
[2018-09-06 16:26] VITALS: BP 124/73
[2018-09-06 17:46] LABS: Bacteria,Urine 4+ /HPF (Negative); Bilirubin,Urine NEG (Negative); Blood,Urine NEG (Negative); Color,Urine Yellow (Yellow); Mucus,Urine FEW /HPF; Protein,Urine <15 mg/dL mg/dL (Negative); Urobilinogen,Urine < 2.0 mg/dL (<2.0)
--- NOTE | 2018-09-06 19:49 | Ultrasound Report ---
PROCEDURE: US OB >= 14 WEEKS FETUS TECHNIQUE: Limited OB ultrasound HISTORY: vag bleeding with pain approx 17 weeks, post trauma . Pelvic pain with spotting COMPARISONS: Ultrasound OB 11/11/2012 FINDINGS: LMP: 05/08/2018 Clinical Age: 17 W 2D US Age (average) = 18 W 2D EFW (BPD,HC,AC,FL) =225g +/- 33g (0lbs.8oz. +/- 1oz.) LMP EDC 02/12/2019 US EDC 02/05/2019 CI 86.7 (Range 74 To 83) HC/AC 1.17 (Range 1.07 To 1.29) FL/BPD 59 FL/HC 16.2 (Range 11.6 To 20.6) FL/AC 18.9 BPD 4.2 cm corresponding to age 18 weeks 5 days HC 15.3 cm corresponding to age 18 weeks 2 days AC 13.1 cm corresponding to age 18 weeks 4 days FL 2.5 cm corresponding to age 17 weeks 3 days Presentation: Variable Activity: Monitored Placental location: Posterior with no evidence for placental abruption Placental grade: 0 Cardiac motion: 154 BPM using M-mode doppler Heart (4 CH) :Present Umbilical cord: 3 vessel Bladder: Present Kidneys: Present stomach: Present Diaphragm:Present Spine: Present brain and skull: Present with normal anatomy Cord Insertion: Present Amniotic Fluid Volume: Adequate Cervical Length: 3.7 cm IMPRESSION: Single intrauterine viable with an approximate age of 18 weeks 2 days. No evidence for plac ental abruption. This document is electronically signed by Susan Brown MD., September 06 2018 07:47:18 PM ET
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
== END 2018-09-06 20:45 | disposition home or self-care (01) ==
LOC: ED 14:48
DX: O46.92 Antepartum hemorrhage, unspecified, second trimester (principal); O23.42 Unspecified infection of urinary tract in pregnancy, second trimester; Z3A.17 17 weeks gestation of pregnancy
CPT/HCPCS: 36415; 76805; 81001; 84702; 85025; 86900; 86901; 99284

== ENCOUNTER 2018-11-30 16:46 | Outpatient (CLI) | payer OTHER ==
--- NOTE | 2018-11-30 19:23 | Ultrasound Report ---
ULTRASOUND BIOPHYSICAL PROFILE AND LIMITED OB PELVIC ULTRASOUND INDICATION / CLINICAL INFORMATION: History of preeclampsia. Evaluate well-being. COMPARISON: None available. FINDINGS: BREATHING MOVEMENT = 2 GROSS BODY MOVEMENT = 2 TONE = 2 QUALITATIVE AMNIOTIC FLUID VOLUME = 2 TOTAL BIOPHYSICAL SCORE = 8/8 AMNIOTIC FLUID INDEX (cm) = 15.1 PRESENTATION: Cephalic. HEART RATE (beats per minute): 152 IMPRESSION: biophysical profile = 12/17 Signer Name: Manny Teixeira MD Signed: 11/30/2018 7:19 PM Workstation Name: [id number]
[2018-11-30 20:02] VITALS: BP 138/77
[2018-11-30 20:22] LABS: Hematocrit 33.4 % (30.3-42.9); Hemoglobin 11.6 gm/dl (10.1-14.3); Mean Corpuscular HGB Conc 35 % (30-34); Mean Corpuscular Volume 86 fl (79-97); Platelet Count 281 K/mm3 (140-440); Red Blood Count 3.88 M/mm3 (3.65-5.03); Red Cell Distribution Width 13.3 % (13.2-15.2)
[2018-11-30 20:26] LABS: Bacteria,Urine 4+ /HPF (Negative); Bilirubin,Urine NEG (Negative); Blood,Urine NEG (Negative); Color,Urine Yellow (Yellow); Hyaline Casts,Urine 1 /LPF; Mucus,Urine FEW /HPF; Protein,Urine <15 mg/dL mg/dL (Negative); Urobilinogen,Urine < 2.0 mg/dL (<2.0)
[2018-11-30 20:47] LABS: Alanine Aminotransferase 6 units/L (7-56); Uric Acid 3.8 mg/dL (3.5-7.6)
== END 2018-11-30 20:19 | disposition home or self-care (01) ==
LOC: TRG 16:46
PROVIDERS: ATTEND Obstetrics & Gynecology
DX: O47.03 False labor before 37 completed weeks of gestation, third trimester (principal); O13.3 Gestational [pregnancy-induced] hypertension without significant proteinuria, third trimester; O24.410 Gestational diabetes mellitus in pregnancy, diet controlled; Z3A.29 29 weeks gestation of pregnancy
CPT/HCPCS: 36415; 59025; 76815; 76819; 81001; 82565; 83615; 84450; 84460; 84550; 85027; 87076; 87086; 87186

== ENCOUNTER 2019-01-10 00:35 | Outpatient (CLI) | payer OTHER ==
[2019-01-10] MEDS ORDERED: LACTATED RINGERS 500 ML IV ONE (01:50)
[2019-01-10 03:27] LABS: Hematocrit 30.6 % (30.3-42.9); Hemoglobin 10.4 gm/dl (10.1-14.3); Mean Corpuscular HGB Conc 34 % (30-34); Mean Corpuscular Volume 82 fl (79-97); Platelet Count 213 K/mm3 (140-440); Red Blood Count 3.72 M/mm3 (3.65-5.03); Red Cell Distribution Width 14.1 % (13.2-15.2)
[2019-01-10 03:32] LABS: Bilirubin,Urine NEG (Negative); Blood,Urine SM (Negative); Color,Urine Yellow (Yellow); Mucus,Urine FEW /HPF; Protein,Urine <15 mg/dL mg/dL (Negative); Urobilinogen,Urine < 2.0 mg/dL (<2.0)
[2019-01-10 03:45] LABS: Alanine Aminotransferase 6 units/L (7-56)
[2019-01-10 04:35] VITALS: BP 145/86
[2019-01-10 08:17] LABS: Uric Acid 5.1 mg/dL (3.5-7.6)
== END 2019-01-10 05:30 | disposition home or self-care (01) ==
LOC: TRG 00:35
PROVIDERS: ATTEND Obstetrics & Gynecology
DX: O26.893 Other specified pregnancy related conditions, third trimester (principal); R03.0 Elevated blood-pressure reading, without diagnosis of hypertension; R10.9 Unspecified abdominal pain; Z3A.35 35 weeks gestation of pregnancy
CPT/HCPCS: 36415; 81001; 82565; 83615; 84450; 84460; 84550; 85027; 87086; J7120

== ENCOUNTER 2019-01-16 11:36 | Inpatient (IN) | payer OTHER ==
[2019-01-16] MEDS ORDERED: SUBLIMAZE IV PRN (11:52)
[2019-01-16] MEDS ORDERED: ZOFRAN IV PRN (11:52)
[2019-01-16] MEDS ORDERED: BRETHINE SUB-Q PRN (11:52)
[2019-01-16] MEDS ORDERED: AMPICILLIN/NS 2 GM/100 ML 2 GM/100 ML BAG IV ONE (12:00)
[2019-01-16] MEDS ORDERED: LACTATED RINGERS 1,000 ML IV SCH ×2 (12:00→19:00)
--- NOTE | 2019-01-16 12:01 | History and Physical Report ---
History of Present Illness Date of examination: 01/16/19 (SROM this AM 10:00 per pt fluid clear) Chief complaint: SROM 1000 today clear fluid with some blood streaks History of present illness: EDC Confirmation: 02/11/2019 Gestational Age: 9 5/7 weeks Past History : 2 Term Births: 0 Premature Births: 1 Living Children: 1 Para: 1 Mult. Births: 0 Prev : 0 Prev. attempt? 0 Aborta: 0 Elect. Ab: 0 Spont. Ab: 0 Ectopics: 0 # 1 Delivery date: 11/12/2012 Weeks Gestation: 35+3 Delivery type: Vacuum Anesthesia type: epidural Delivery location: [facility] Infant Sex: male weight: 4.63 Comments: pre-eclampsia/eclampsia Past Medical History: Hx of pre-eclampsia no dx of HTN Past Surgical History: Negative Past Surgical History Past Medical History Surgery (Non-construction cost estimator): Negative Past Surgical History Abnormal PAP: negative FREDDIE Exposure: negative Infertility: negative Uterine Anomaly: negative Uterine Surgery (not C/S): negative Other Gynecologic Problems: negative Social Hx: Patient is single unemployed Infection History Hx of STD: none HIV Risk Eval: low risk Hepatitis B Risk Eval: low risk Personal hx. of genital herpes: no Rash, Viral, or Febrile illness since last LMP? no Varicella/Chicken Pox Status: Immunized TB Risk: no Genetic History Congenital Heart Defect: Mom: no Dad: no Farheen Disease: Mom: no Dad: no Thalassemia Mom: no Dad: no Neural Tube Defect Mom: no Dad: no Down's Syndrome Mom: no Dad: no Moise-Sachs Mom: no Dad: no Sickle Cell Disease/Trait Mom: no Dad: no Hemophilia Mom: no Dad: no Muscular Dystrophy Mom: no Dad: no Cystic Fibrosis Mom: no Dad: no Alverto Chorea Mom: no Dad: no Mental Retardation Mom: no Dad: no Fragile X Mom: no Dad: no Other Genetic/Chromosomal Disorder Mom: no Dad: no Child w/other defect Mom: no Dad: no Enviromental Exposures Xray Exposure: no Medication, drug, or alcohol use since LMP: no Chemical/Other Exposure: no Exposure to Cat Liter: no Hx of Parvovirus (Fifth Disease): no Occupational Exposure to Children: none Active Medications: None Current Allergies (reviewed today): No known allergies Past History - Obstetrical History Expected Date of Delivery: 02/11/19 Actual Gestation: 36 Week(s) 2 Day(s) : 2 Para: 1 (del @ 36w) Hx # Term Pregnancies: 0 Number of Pregnancies: 1 Spontaneous Abortions: 0 Induced : 0 Number of Living Children: 1 Medications and Allergies Allergies Allergy/AdvReac Type Severity Reaction Status Date / Time No Known Allergies Allergy Verified 11/09/16 12:25 Home Medications Medication Instructions Recorded Confirmed Last Taken Type Albuterol Sulfate [Ventolin HFA] 2 puff IH Q4H PRN #1 hfa.aer.ad 11/09/16 Unknown Rx Sulfamethoxazole/Trimethoprim 1 each PO BID #14 tablet 11/09/16 Unknown Rx [Bactrim DS TAB] Metoclopramide [Reglan] 10 mg PO TID PRN #21 tab 12/03/17 Unknown Rx traMADol [Ultram] 50 mg PO Q6HR PRN #15 tablet 12/03/17 Unknown Rx ALBUTEROL Inhaler(NF) [VENTOLIN 2 puff IH Q6H PRN #1 device 05/03/18 Unknown Rx Inhaler(NF)] predniSONE [Deltasone] 3 tab PO QDAY 4 Days #12 tab 05/03/18 Unknown Rx Ondansetron [Zofran Odt] 4 mg PO Q8HR PRN #15 tab.rapdis 07/04/18 Unknown Rx Glycerin 1 each RC DAILY PRN #10 supp.rect 08/06/18 Unknown Rx Nitrofurantoin [place]/M-Cryst 100 mg PO BID 7 Days #14 capsule 08/06/18 Unknown Rx [Macrobid CAP] Polyethylene Glycol 3350 [Miralax] 17 gm PO BID #1 powder 08/06/18 Unknown Rx Promethazine [Phenergan] 25 mg [place] Q8HR PRN #10 supp.rect 08/06/18 Unknown Rx Nitrofurantoin Monohyd/M-Cryst 100 mg PO BID #14 capsule 09/06/18 Unknown Rx [Macrobid 100 mg Capsule] Active Meds: Active Medications Ephedrine Sulfate (Ephedrine Sulfate) 10 mg IV Q2M PRN PRN Reason: Hypotension Fentanyl (Sublimaze) 100 mcg IV Q2H PRN PRN Reason: Labor Pain Oxytocin/Sodium Chloride (Pitocin/Ns 20 Unit/1000ml Drip) 20 units in 1,000 mls @ 125 mls/hr IV DIRECT TERE Oxytocin/Sodium Chloride (Pitocin/Ns 30 Unit/500ml) 30 units in 500 mls @ 4 mls/hr IV TITR TERE; Protocol Lactated Ringer's (Lactated Ringers) 1,000 mls @ 125 mls/hr IV DIRECT TERE Ampicillin Sodium (Ampicillin/Ns 1 Gm/50 Ml) 1 gm in 50 mls @ 100 mls/hr IV Q4HR TERE; Protocol Ampicillin Sodium (Ampicillin/Ns 2 Gm/100 Ml) 2 gm in 100 mls @ 100 mls/hr IV ONCE ONE; Protocol Stop: 01/16/19 12:51 Lidocaine (Xylocaine 2%) 20 ml INFILTRATI ONCE ONE Stop: 01/16/19 11:53 Mineral Oil (Mineral Oil) 30 ml PO QHS PRN PRN Reason: Constipation Ondansetron HCl (Zofran) 4 mg IV Q8H PRN PRN Reason: Nausea And Vomiting Terbutaline Sulfate (Brethine) 0.25 mg SUB-Q ONCE PRN PRN Reason: Hyperstimulation/Hypertonicity - Vital Signs Vital signs: Vital Signs Pulse BP 90 143/79 01/16/19 11:50 01/16/19 11:50 Temp Pulse Resp BP Pulse Ox 90 143/79 01/16/19 11:50 01/16/19 11:50 - Physical Exam Breasts: Positive: deferred Cardiovascular: Regular rate, Normal S1, Normal S2 Lungs: Positive: Normal air movement Abdomen: Positive: normal appearance, soft, normal bowel sounds. Negative: distention, tenderness Genitourinary (Female): Positive: normal external genitalia Vulva: both: normal Vagina: Positive: normal moisture. Negative: discharge Cervix: Negative: lesion, discharge Uterus: Positive: normal size, normal contour Adnexa: both: normal Anus/Rectum: Positive: normal perianal skin, heme negative. Negative: rectal mass, hemorrhoids Extremities: Positive: edema Deep Tendon Reflex Grade: Normal +2 - Obstetrical FHR: category 1 Uterine Contraction Monitor Mode: External Cervical Dilatation: 3 (cervix is very posterior) Cervical Effacement Percentage: 70 (clear fluid noted) station: -1 Uterine Contraction Pattern: Irregular Uterine Tone Measurement Phase: Resting Uterine Contraction Intensity: Mild Results All other labs normal. GBS Positive HBsAg Screen Negative Negative *1 RPR Non Reactive Non Reactive *2 Rubella Antibodies, IgG 11.40 index Immune >0.99 *3 Non-immune <0.90 Equivocal 0.90 - 0.99 Immune >0.99 ABO Grouping AB *4 Rh Factor Positive *5 Please note: Prior records for this patient's ABO / Rh type are not available for additional verification. Antibody Screen Negative Negative *6 WBC 9.2 x10E3/uL 3.4-10.8 *7 RBC 4.57 x10E6/uL 3.77-5.28 *8 Hemoglobin 13.5 g/dL 11.1-15.9 *9 Hematocrit 38.6 % 34.0-46.6 *10 MCV 85 fL 79-97 *11 MCH 29.5 pg 26.6-33.0 *12 MCHC 35.0 g/dL 31.5-35.7 *13 RDW 14.6 % 12.3-15.4 *14 Platelets 303 x10E3/uL 150-379 *15 Neutrophils 67 % Not Estab. *16 Lymphs 25 % Not Estab. *17 Monocytes 8 % Not Estab. *18 Eos 0 % Not Estab. *19 Basos 0 % Not Estab. *20 ! Immature Cells <No Reported Value> *21 Neutrophils (Absolute) 6.1 x10E3/uL 1.4-7.0 *22 Lymphs (Absolute) 2.3 x10E3/uL 0.7-3.1 *23 Monocytes(Absolute) 0.7 x10E3/uL 0.1-0.9 *24 Eos (Absolute) 0.0 x10E3/uL 0.0-0.4 *25 Baso (Absolute) 0.0 x10E3/uL 0.0-0.2 *26 ! Immature Granulocytes 0 % Not Estab. *27 ! Immature Grans (Abs) 0.0 x10E3/uL 0.0-0.1 *28 ! NRBC <No Reported Value> *29 Hematology Comments: <No Reported Value> *30 Tests: (2) Panel 572010 ([id number]) HIV Screen 4th Generation wRfx Non Reactive Non Reactive *31 Tests: (3) HCV Ab w/Rflx to Verification ([id number]) ! HCV Ab <0.1 s/co ratio 0.0-0.9 *32 Tests: (4) Comment: ([id number]) ! Comment: SPR[facility] *33 Non reactive HCV antibody screen is consistent with no HCV infection, unless recent infection is suspected or other evidence exists to indicate HCV infection. Tests: (5) Urine Culture, Routine ([id number]) Urine Culture, Routine Final report *34 Tests: (6) Result ([id number]) ! Result 1 No growth Assessment and Plan 28yo @ 36w with PPROM GBS+ All orders in EMR. aware of admission. - Patient Problems (1) Chronic hypertension during Onset Date: ~01/16/19 Current Visit: Yes Status: Acute Plan to address problem: close monitoring of BPs; PIH labs ordered (2) Group B Streptococcus carrier state affecting Onset Date: ~01/16/19 Current Visit: Yes Status: Acute Plan to address problem: GBS protocol ordered (3) Premature rupture of membranes Onset Date: ~01/16/19 Current Visit: Yes Status: Acute Qualifiers: PROM onset of labor timing: onset of labor within 24 hours of rupture PROM gestational age: -third trimester Qualified Code(s): O42.013 - premature rupture of membranes, onset of labor within 24 hours of rupture, third trimester Plan to address problem: Irregular mild ctx on admission Pitocin started per protocol
[2019-01-16] MEDS ORDERED: PITOCin/NS 30 UNIT/500ML 30 UNITS/500 ML BAG IV SCH ×2 (13:00→13:30)
[2019-01-16] MEDS ORDERED: PITOCin/NS 20 UNIT/1000ML DRIP 20 UNITS/1,000 ML BAG IV SCH (13:00)
[2019-01-16] MEDS ORDERED: XYLOCAINE 2% INFILTRATI ONE (13:00)
[2019-01-16 13:34] LABS: Hematocrit 31.9 % (30.3-42.9); Hemoglobin 10.7 gm/dl (10.1-14.3); Mean Corpuscular HGB Conc 34 % (30-34); Mean Corpuscular Volume 82 fl (79-97); Platelet Count 194 K/mm3 (140-440); Red Blood Count 3.88 M/mm3 (3.65-5.03); Red Cell Distribution Width 14.4 % (13.2-15.2)
[2019-01-16 13:54] LABS: Uric Acid 5.3 mg/dL (3.5-7.6)
[2019-01-16 14:02] LABS: Alanine Aminotransferase < 5 units/L (7-56)
[2019-01-16] MEDS ORDERED: NARCAN 2 MG/2 ML IV PRN (14:56)
--- NOTE | 2019-01-16 14:59 | Anesthesia Consultation ---
Anesthesia Consult and Med Hx Date of service: 01/16/19 - Airway Anesthetic Teeth Evaluation: Good ROM Head & Neck: Adequate Mental/Hyoid Distance: Adequate Mallampati Class: Class II Intubation Access Assessment: Good - Pulmonary Exam CTA: Yes - Cardiac Exam Cardiac Exam: RRR - Pre-Operative Health Status ASA Pre-Surgery Classification: ASA2, Emergency Proposed Anesthetic Plan: Epidural - Pulmonary Hx Asthma: No COPD: No Hx Pneumonia: No - Cardiovascular System Hx Hypertension: Yes (PIH) - Central Nervous System Hx Seizures: No Hx Psychiatric Problems: No - Endocrine Hx Renal Disease: No Hx End Stage Renal Disease: No Hx Hypothyroidism: No Hx Hyperthyroidism: No - Hematic Hx Anemia: No Hx Sickle Cell Disease: No - Other Systems Hx Alcohol Use: No
[2019-01-16] MEDS ORDERED: fentaNYL-BUPIV 2 MCG/ML-0.125% 200 MCG/100 ML BAG EPIDURAL SCH (15:00)
--- NOTE | 2019-01-16 15:56 | Progress Note ---
Assessment and Plan Pt comfortable with epidural Internals placed. Pit @ 12mu Re-eval as needed. - Patient Problems (1) Chronic hypertension during Onset Date: ~01/16/19 Current Visit: Yes Status: Acute (2) Group B Streptococcus carrier state affecting Onset Date: ~01/16/19 Current Visit: Yes Status: Acute (3) Premature rupture of membranes Onset Date: ~01/16/19 Current Visit: Yes Status: Acute Qualifiers: PROM onset of labor timing: onset of labor within 24 hours of rupture PROM gestational age: -third trimester Qualified Code(s): O42.013 - premature rupture of membranes, onset of labor within 24 hours of rupture, third trimester Subjective - Subjective Date of service: 01/16/19 (comfortable with epidural) Principal diagnosis: IUP @ 36.2weeks with SROM Interval history: EDC Confirmation: 02/11/2019 Gestational Age: 9 5/7 weeks Past History : 2 Term Births: 0 Premature Births: 1 Living Children: 1 Para: 1 Mult. Births: 0 Prev : 0 Prev. attempt? 0 Aborta: 0 Elect. Ab: 0 Spont. 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 of genital herpes: no Rash, Viral, or Febrile illness since last LMP? no Varicella/Chicken Pox Status: Immunized TB Risk: no Genetic History Congenital Heart Defect: Mom: no Dad: no Farheen Disease: Mom: no Dad: no Thalassemia Mom: no Dad: no Neural Tube Defect Mom: no Dad: no Down's Syndrome Mom: no Dad: no Moise-Sachs Mom: no Dad: no Sickle Cell Disease/Trait Mom: no Dad: no Hemophilia Mom: no Dad: no Muscular Dystrophy Mom: no Dad: no Cystic Fibrosis Mom: no Dad: no [place] Chorea Mom: no Dad: no Mental Retardation Mom: no Dad: no Fragile X Mom: no Dad: no Other Genetic/Chromosomal Disorder Mom: no Dad: no Child w/other defect Mom: no Dad: no Enviromental Exposures Xray Exposure: no Medication, drug, or alcohol use since LMP: no Chemical/Other Exposure: no Exposure to Cat Liter: no Hx of Parvovirus (Fifth Disease): no Occupational Exposure to Children: none Active Medications: None Current Allergies (reviewed today): No known allergies Patient reports: movement normal Objective - Vital Signs Vital Signs: Vital Signs - 12hr 01/16/19 01/16/19 01/16/19 11:50 12:00 12:13 Temperature 98.2 F Pulse Rate 90 83 Respiratory 16 Rate Blood Pressure 143/79 142/88 O2 Sat by Pulse Oximetry 01/16/19 01/16/19 01/16/19 12:28 12:32 14:08 Temperature 98.0 F Pulse Rate 50 L 71 Respiratory Rate Blood Pressure 146/87 O2 Sat by Pulse 86 Oximetry 01/16/19 01/16/19 01/16/19 14:49 15:04 15:05 Temperature Pulse Rate 65 54 L 73 Respiratory Rate Blood Pressure 146/65 O2 Sat by Pulse 87 99 Oximetry 01/16/19 01/16/19 01/16/19 15:10 15:13 15:15 Temperature Pulse Rate 83 75 74 Respiratory Rate Blood Pressure 143/84 144/84 O2 Sat by Pulse 98 97 Oximetry 01/16/19 01/16/19 01/16/19 15:17 15:19 15:20 Temperature Pulse Rate 79 81 75 Respiratory Rate Blood Pressure 147/83 144/80 O2 Sat by Pulse 100 Oximetry 01/16/19 01/16/19 01/16/19 15:21 15:23 15:25 Temperature Pulse Rate 83 83 88 Respiratory Rate Blood Pressure 169/71 164/77 164/70 O2 Sat by Pulse 98 Oximetry 01/16/19 01/16/19 01/16/19 15:27 15:29 15:30 Temperature Pulse Rate 81 81 94 H Respiratory Rate Blood Pressure 153/61 150/63 O2 Sat by Pulse 98 Oximetry 01/16/19 01/16/19 01/16/19 15:31 15:32 15:35 Temperature Pulse Rate 74 77 Respiratory Rate Blood Pressure 132/57 O2 Sat by Pulse 94 83 L Oximetry 01/16/19 01/16/19 01/16/19 15:36 15:40 15:45 Temperature Pulse Rate 80 97 H 77 Respiratory Rate Blood Pressure 148/77 O2 Sat by Pulse 98 99 Oximetry 01/16/19 01/16/19 15:50 15:51 Temperature Pulse Rate 82 75 Respiratory Rate Blood Pressure 144/72 O2 Sat by Pulse 99 Oximetry - Exam Breasts: deferred Cardiovascular: Regular rate Lungs: Normal air movement Abdomen: Present: normal appearance, soft. Absent: distention, tenderness Uterus: Present: normal FHR: auscultation normal, category 1 Uterine Contraction Monitor Mode: Internal Cervical Dilatation: 6 (IUPC/ISE placed) Cervical Effacement Percentage: 80 station: -1 Uterine Contraction Pattern: Regular Uterine Tone Measurement Phase: Resting Uterine Contraction Intensity: Mild Extremities: edema Deep Tendon Reflex Grade: Normal +2 - Labs Labs: Abnormal Labs 01/16/19 13:12 ALT < 5 L Lactate Dehydrogenase 206 H Laboratory Results - last 24 hr 01/16/19 01/16/19 01/16/19 13:12 13:12 13:12 WBC 9.1 RBC 3.88 Hgb 10.7 Hct 31.9 MCV 82 MCH 28 MCHC 34 RDW 14.4 Plt Count 194 Creatinine Estimated GFR Uric Acid AST ALT Lactate Dehydrogenase RPR Nonreactive Blood Type AB POSITIVE Antibody Screen Negative 01/16/19 13:12 WBC RBC Hgb Hct MCV MCH MCHC RDW Plt Count Creatinine 0.7 Estimated GFR > 60 Uric Acid 5.3 AST 10 ALT < 5 L Lactate Dehydrogenase 206 H RPR Blood Type Antibody Screen
[2019-01-16] MEDS ORDERED: AMPICILLIN/NS 1 GM/50 ML 1 GM/50 ML BAG IV SCH (16:00)
[2019-01-16] MEDS ORDERED: MAGNESIUM SULFATE 4GM/100ML 4 GM/100 ML BAG IV ONE (17:55)
[2019-01-16] MEDS ORDERED: MAGNESIUM SULFATE 40GM/1000ML 40 GM/1,000 ML BAG IV SCH (18:00)
--- NOTE | 2019-01-16 18:02 | Procedure Note ---
OB Delivery Note - Delivery Date of Delivery: 01/16/19 [employer]: NAVEED BOND Estimated blood loss: 300cc - Vaginal Delivery presentation: vertex Delivery position: OA Intrapartum events: labor-<37 weeks, PROM->1hr before delivery, other(please specify) (chronic htn; GDM(diet)) Delivery induction: none Delivery augmentation: pitocin Delivery monitor: internal FHT, internal uterine Route of delivery: Delivery placenta: spontaneous Delivery cord: nuchal cord, 3 umbilical vessels Episiotomy: none Delivery laceration: none Anesthesia: epidural Delivery comments: Variable decels noted SVE 10,100,+1 live born male over intact perineum CAN X 1 reduced Baby to mom's abdomen skin to skin. Placenta and membrane delivered complete and intact, 3 vessel cord. Pitocin IVFs 8/9, EBL 300, Wgt 6-7. Mom and baby remain LDR stable. Pt noted to have elevated BPs just prior to delivery and PP. Consulted with Nasrin Santacruz Will start MGSO4 per protocol for PP Pre-E. Explained POC to pt voiced understanding. - A at 1 minute: 8 at 5 minutes: 9 Gender: Male (wgt 6-7)
[2019-01-16] MEDS ORDERED: BENADRYL PO PRN (18:04)
[2019-01-16] MEDS ORDERED: MILK OF MAGNESIA PO PRN (18:04)
[2019-01-16] MEDS ORDERED: DULCOLAX PR PRN (18:04)
[2019-01-16] MEDS ORDERED: PHENERGAN PO PRN (18:04)
[2019-01-16] MEDS ORDERED: TUCKS PAD TP PRN (18:04)
[2019-01-16] MEDS ORDERED: LANSINOH TP PRN (18:04)
[2019-01-16] MEDS ORDERED: TYLENOL PO PRN (18:04)
[2019-01-16] MEDS ORDERED: NORMODYNE IV ONE (18:29)
[2019-01-16] MEDS ORDERED: SODIUM CHLORIDE FLUSH SYRINGE 10 ML IV NR (19:00)
[2019-01-16] MEDS: IBUPROFEN PO SCH (19:35)
[2019-01-16] MEDS ORDERED: MINERAL OIL PO PRN (21:00)
[2019-01-16] MEDS ORDERED: NORMODYNE PO SCH (23:00)
[2019-01-16] MEDS ORDERED: APRESOLINE IV ONE (23:16)
[2019-01-17] MEDS ORDERED: CALCIUM GLUCONATE IV ONE (00:14)
[2019-01-17 04:44] LABS: Bilirubin,Urine NEG (Negative); Blood,Urine SM (Negative); Color,Urine Straw (Yellow); Mucus,Urine FEW /HPF; Protein,Urine <15 mg/dL mg/dL (Negative); Urobilinogen,Urine < 2.0 mg/dL (<2.0)
[2019-01-17] MEDS ORDERED: BOOSTRIX IM ONE (06:00)
[2019-01-17] MEDS ORDERED: M-M-R II VACCINE SUB-Q ONE (06:00)
[2019-01-17 06:19] LABS: Hemoglobin 10.3 gm/dl (10.1-14.3)
--- NOTE | 2019-01-17 08:19 | Progress Note ---
Assessment and Plan - Patient Problems (1) Pre-eclampsia, Onset Date: ~01/17/19 Current Visit: Yes Status: Acute Plan to address problem: Pt resting quietly No further episodes of anxiety( around [place] RN over heard pt and SO arguing) Pt is calm and relaxed @ time of rounds. Pt does state she has had a AREVALO but r/t lack of sleep. NB is in the holding nursery. SO sleeping on the window bench. BP stable @ 150-130/80 MGSO4@ 1gm/hr ( decreased from 2gm/hr due to pt's anxiety attack and c/o SOB @ [place]. Mag level @ that time was 3 After pt was evaluated MGSO4 restarted @ 1gm/hr) FF below umb Lochia small Perineum intact H&H 03/11 BS 75 0600 Mag level 3.8 Doing well s/p vag delivery Stable preE PP. Plan: continue pathway and orders as noted Will cont. po Labetalol MGSO4 off @ 1730 Transfer to M/B @ 1800 Pt aware of POC All questions addressed. given report. (2) Spontaneous vaginal delivery Onset Date: ~01/16/19 Current Visit: Yes Status: Acute Plan to address problem: Continue pathway Subjective - Subjective Date of service: 01/17/19 (pt states she has a mild AREVALO "I think its from lack of sleep.") Principal diagnosis: Day # 1 s/p PreE Interval history: EDC Confirmation: 02/11/2019 Gestational Age: 9 5/7 weeks Past History : 2 Term Births: 0 Premature Births: 1 Living Children: 1 Para: 1 Mult. Births: 0 Prev : 0 Prev. attempt? 0 Aborta: 0 Elect. Ab: 0 Spont. Ab: 0 Ectopics: 0 # 1 Delivery date: 11/12/2012 Weeks Gestation: 35+3 Delivery type: Vacuum Anesthesia type: epidural Delivery location: 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 of genital herpes: no Rash, Viral, or Febrile illness since last LMP? no Varicella/Chicken Pox Status: Immunized TB Risk: no Genetic History Congenital Heart Defect: Mom: no Dad: no Farheen Disease: Mom: no Dad: no Thalassemia Mom: no Dad: no Neural Tube Defect Mom: no Dad: no Down's Syndrome Mom: no Dad: no Moise-Sachs Mom: no Dad: no Sickle Cell Disease/Trait Mom: no Dad: no Hemophilia Mom: no Dad: no Muscular Dystrophy Mom: no Dad: no Cystic Fibrosis Mom: no Dad: no [place] Chorea Mom: no Dad: no Mental Retardation Mom: no Dad: no Fragile X Mom: no Dad: no Other Genetic/Chromosomal Disorder Mom: no Dad: no Child w/other defect Mom: no Dad: no Enviromental Exposures Xray Exposure: no Medication, drug, or alcohol use since LMP: no Chemical/Other Exposure: no Exposure to Cat Liter: no Hx of Parvovirus (Fifth Disease): no Occupational Exposure to Children: none Active Medications: None Current Allergies (reviewed today): No known allergies Patient reports: voiding normally (clear yellow urine to Alves), pain well controlled : doing well Objective - Vital Signs Latest vital signs: Vital Signs Temp Pulse Resp BP BP Pulse Ox 01/17/19 08:06 86 98 01/17/19 08:01 85 97 01/17/19 07:56 94 H 99 01/17/19 07:51 86 98 01/17/19 07:46 90 98 01/17/19 07:41 93 H 97 01/17/19 07:37 88 90 01/17/19 07:36 92 H 98 01/17/19 07:31 93 H 98 01/17/19 07:26 87 98 01/17/19 07:24 16 01/17/19 07:21 88 99 01/17/19 07:16 90 97 01/17/19 07:11 89 97 01/17/19 07:06 89 98 01/17/19 07:01 88 99 01/17/19 06:56 95 H 98 01/17/19 06:51 89 98 01/17/19 06:46 99 H 99 01/17/19 06:41 93 H 98 01/17/19 06:36 97 H 97 01/17/19 06:31 97 H 98 01/17/19 06:26 91 H 97 01/17/19 06:21 90 97 01/17/19 06:16 93 H 98 01/17/19 06:11 99 H 97 01/17/19 06:06 95 H 97 01/17/19 06:01 91 H 98 01/17/19 05:56 95 H 98 01/17/19 05:51 100 H 94 01/17/19 05:46 96 H 96 01/17/19 05:41 99 H 99 01/17/19 05:36 100 H 99 01/17/19 05:35 98 H 143/82 01/17/19 05:31 99 H 96 01/17/19 05:26 95 H 97 01/17/19 05:21 96 H 97 01/17/19 05:16 93 H 97 01/17/19 05:11 102 H 96 01/17/19 05:06 93 H 97 01/17/19 05:05 92 H 146/87 01/17/19 05:01 101 H 98 01/17/19 04:56 97 H 98 01/17/19 04:51 98 H 98 01/17/19 04:46 100 H 98 01/17/19 04:41 92 H 98 01/17/19 04:36 89 98 01/17/19 04:35 90 143/85 01/17/19 04:31 88 98 01/17/19 04:26 90 98 01/17/19 04:21 93 H 98 01/17/19 04:16 87 98 01/17/19 04:11 91 H 99 01/17/19 04:06 85 98 01/17/19 04:05 87 143/82 01/17/19 04:01 88 98 01/17/19 03:56 85 98 01/17/19 03:51 94 H 100 01/17/19 03:46 98.4 F 90 20 150/84 97 01/17/19 03:41 90 99 01/17/19 03:40 92 H 150/85 01/17/19 03:36 98 H 99 01/17/19 03:35 104 H 184/90 01/17/19 03:32 77 91 01/17/19 03:31 98 H 100 01/17/19 03:26 90 97 01/17/19 03:21 90 98 01/17/19 03:16 97 H 99 01/17/19 03:11 92 H 98 01/17/19 03:06 92 H 98 01/17/19 03:05 91 H 141/84 01/17/19 03:01 89 98 01/17/19 02:56 93 H 97 01/17/19 02:51 94 H 97 01/17/19 02:46 91 H 96 01/17/19 02:41 90 96 01/17/19 02:36 91 H 96 01/17/19 02:35 88 139/80 01/17/19 02:31 89 98 01/17/19 02:26 88 97 01/17/19 02:21 90 97 01/17/19 02:16 89 98 01/17/19 02:11 86 98 01/17/19 02:06 89 98 01/17/19 02:05 89 144/80 01/17/19 02:01 90 98 01/17/19 01:56 79 99 01/17/19 01:51 83 98 01/17/19 01:46 86 98 01/17/19 01:41 83 99 01/17/19 01:36 80 99 01/17/19 01:35 82 151/88 01/17/19 01:31 95 H 100 01/17/19 01:26 96 H 99 01/17/19 01:21 89 99 01/17/19 01:16 95 H 98 01/17/19 01:11 92 H 96 01/17/19 01:06 93 H 97 01/17/19 01:05 93 H 160/89 01/17/19 01:01 112 H 97 01/17/19 00:56 92 H 98 01/17/19 00:51 103 H 98 01/17/19 00:46 94 H 98 01/17/19 00:41 93 H 98 01/17/19 00:36 88 99 01/17/19 00:34 87 160/86 01/17/19 00:31 97 H 98 01/17/19 00:26 98 H 97 01/17/19 00:21 89 97 01/17/19 00:17 93 H 81 L 01/17/19 00:16 91 H 98 01/17/19 00:11 97 H 170/89 99 01/17/19 00:08 115 H 185/100 01/17/19 00:06 126 H 99 01/17/19 00:01 81 L 01/17/19 00:00 98.8 F 114 H 20 97 01/16/19 23:55 117 H 98 01/16/19 23:50 99 H 99 01/16/19 23:45 113 H 98 01/16/19 23:41 96 H 169/86 01/16/19 23:40 103 H 98 01/16/19 23:35 114 H 98 01/16/19 23:30 100 H 98 01/16/19 23:25 92 H 98 01/16/19 23:20 91 H 98 01/16/19 23:15 99 H 97 01/16/19 23:10 99 H 98 01/16/19 23:06 100 H 143/74 01/16/19 23:05 108 H 97 01/16/19 23:01 98 H 141/81 01/16/19 23:00 102 H 99 01/16/19 22:56 101 H 146/78 01/16/19 22:55 100 H 98 01/16/19 22:51 95 H 151/82 01/16/19 22:50 92 H 150/77 96 01/16/19 22:47 99 H 93 01/16/19 22:45 88 91 01/16/19 22:42 79 0 L 01/16/19 22:27 82 189/93 01/16/19 22:26 91 01/16/19 22:22 86 200/99 01/16/19 22:03 86 164/91 01/16/19 21:51 104 H 197/108 01/16/19 21:47 78 81 L 01/16/19 21:43 98 H 99 01/16/19 21:38 84 97 01/16/19 21:33 89 97 01/16/19 21:28 84 98 01/16/19 21:23 84 99 01/16/19 21:21 85 146/89 01/16/19 21:18 88 97 01/16/19 21:13 88 97 01/16/19 21:08 86 98 01/16/19 21:03 84 98 01/16/19 20:58 84 98 01/16/19 20:53 87 159/84 98 01/16/19 20:51 81 162/89 01/16/19 20:48 78 99 01/16/19 20:43 87 97 01/16/19 20:38 87 98 01/16/19 20:33 87 98 01/16/19 20:28 86 98 01/16/19 20:23 84 98 01/16/19 20:21 86 138/87 01/16/19 20:18 81 98 01/16/19 20:13 85 99 01/16/19 20:08 86 98 01/16/19 20:03 93 H 99 01/16/19 19:58 92 H 99 01/16/19 19:53 87 99 01/16/19 19:52 86 01/16/19 19:51 88 142/83 01/16/19 19:47 89 99 01/16/19 19:42 86 99 01/16/19 19:37 81 99 01/16/19 19:32 72 99 01/16/19 19:31 71 172/79 01/16/19 19:27 74 99 01/16/19 19:22 85 98 01/16/19 19:21 71 172/79 01/16/19 19:17 71 97 01/16/19 19:12 88 99 01/16/19 18:57 97.7 F 01/16/19 18:51 78 160/78 01/16/19 18:47 83 133/90 01/16/19 18:27 77 165/98 01/16/19 17:59 83 227/88 01/16/19 17:52 162 H 190/84 01/16/19 17:49 81 170/84 01/16/19 17:35 85 100 01/16/19 17:30 84 100 01/16/19 17:25 78 100 01/16/19 17:22 72 147/90 01/16/19 17:20 70 99 01/16/19 17:15 69 100 01/16/19 17:12 89 85 01/16/19 17:10 70 99 01/16/19 17:06 71 147/83 01/16/19 17:05 70 99 01/16/19 17:00 72 99 01/16/19 16:55 69 99 01/16/19 16:51 72 158/90 01/16/19 16:50 77 100 01/16/19 16:46 71 154/83 01/16/19 16:45 73 100 01/16/19 16:43 76 184/85 01/16/19 16:42 98.1 F 01/16/19 16:40 66 100 01/16/19 16:39 70 171/80 78 L 01/16/19 16:37 80 178/90 01/16/19 16:35 73 99 01/16/19 16:30 72 100 01/16/19 16:25 72 100 01/16/19 16:22 72 150/88 01/16/19 16:20 74 100 01/16/19 16:15 73 100 01/16/19 16:10 75 100 01/16/19 16:08 80 116/68 01/16/19 16:05 78 100 01/16/19 16:00 75 99 01/16/19 15:55 79 99 01/16/19 15:51 75 144/72 01/16/19 15:50 82 99 01/16/19 15:45 77 99 01/16/19 15:40 97 H 98 01/16/19 15:36 80 148/77 01/16/19 15:35 83 L 01/16/19 15:32 77 132/57 01/16/19 15:31 74 94 01/16/19 15:30 94 H 98 01/16/19 15:29 81 150/63 01/16/19 15:27 81 153/61 01/16/19 15:25 88 164/70 98 01/16/19 15:23 83 164/77 01/16/19 15:21 83 169/71 01/16/19 15:20 75 100 01/16/19 15:19 81 144/80 01/16/19 15:17 79 147/83 01/16/19 15:15 74 144/84 97 01/16/19 15:13 75 143/84 01/16/19 15:10 83 98 01/16/19 15:05 73 99 01/16/19 15:04 54 L 87 01/16/19 14:49 65 146/65 01/16/19 14:08 98.0 F 01/16/19 12:32 71 146/87 01/16/19 12:28 50 L 86 01/16/19 12:13 83 142/88 01/16/19 12:00 98.2 F 16 01/16/19 11:50 90 143/79 Intake and Output 01/16/19 01/17/19 01/17/19 22:59 06:59 14:59 Intake Total 12 1225.833 Output Total 2550 Balance 12 -1324.167 Intake: IV 12 265.833 MAGNESIUM SULFATE 40GM/ 265.833 1000ML 40 gm In 1,000 ml @ 2 GM/HR 50 mls/hr IV DIRECT TERE Rx#:[id number] PITOCin/NS 30 UNIT/500ML 12 30 units In 500 ml @ 4 mls/hr IV Q30MIN TERE Rx#: [id number] Oral 960 Output: Urine 2550 Indwelling Catheter 2550 Other: Total, Intake Amount 240 Total, Output Amount 900 Estimated Blood Loss 300 - Exam Breasts: Present: normal Cardiovascular: Present: Regular rate Lungs: Present: Clear to auscultation Abdomen: Present: normal appearance, soft Vulva: both: normal Uterus: Present: normal, fundal height below umbilicus Extremities: Present: normal, edema Deep Tendon Reflex Grade: Normal +2 - Labs Labs: Abnormal lab results 01/16/19 01/16/19 01/17/19 Range/Units 13:12 18:28 00:18 POC Glucose 63 L (70-105) Magnesium 3.80 H (1.7-2.3) mg/dL ALT < 5 L (7-56) units/L Lactate Dehydrogenase 206 H (91-180) units/L Urine WBC (Auto) (0.0-6.0) /HPF 01/17/19 01/17/19 01/17/19 Range/Units 01:01 04:00 05:48 POC Glucose 142 H (70-105) Magnesium 3.80 H (1.7-2.3) mg/dL ALT (7-56) units/L Lactate Dehydrogenase (91-180) units/L Urine WBC (Auto) 10.0 H (0.0-6.0) /HPF
[2019-01-17] MEDS: PRENATAL VITAMIN PO SCH (09:47)
[2019-01-17] MEDS: NORMODYNE PO SCH ×2 (09:47→22:00)
[2019-01-17] MEDS: COLACE PO SCH ×2 (09:48→22:16)
--- NOTE | 2019-01-17 10:03 | Post Anesthesia Evaluation ---
- Post Anesthesia Evaluation Patient Participated: Yes Airway Patent: Yes Stable Respiratory Function: Yes Nausea/Vomiting: No Temp > 96.8F: Yes Pain Manageable: Yes Adequeate Hydration: Yes Anesthesia Complications: No Block Receding Appropriately: Yes
[2019-01-17] MEDS: IBUPROFEN PO SCH ×2 (16:53→17:32)
[2019-01-18] MEDS: IBUPROFEN PO SCH (07:00)
--- NOTE | 2019-01-18 08:08 | Discharge Summary ---
Providers - Providers Date of Admission: 01/16/19 13:07 Date of discharge: 01/18/19 Attending physician: RODRIGO BUTT Primary care physician: PANAMA HAT BLOCKER Hospitalization Reason for admission: SROM Condition: Good Pertinent studies: post delivery H&H Procedures: Hospital course: complicated by elevated BPs, magnesium infusion initiated, uncomplicated course, pt stable Disposition: DC-01 TO HOME OR SELFCARE Core Measure Documentation - Palliative Care Palliative Care/ Comfort Measures: Not Applicable - Core Measures Any of the following diagnoses?: none Exam - Constitutional Vitals: Temp Pulse Resp BP Pulse Ox 98.1 F 79 18 141/73 95 01/18/19 07:07 01/18/19 07:07 01/18/19 07:07 01/18/19 07:07 01/18/19 04:30 General appearance: Present: no acute distress, well-nourished - EENT Eyes: Present: PERRL ENT: hearing intact, clear oral mucosa - Neck Neck: Present: supple, normal ROM - Respiratory Respiratory effort: normal Respiratory: bilateral: CTA - Cardiovascular Rhythm: regular Heart Sounds: Present: S1 & S2. Absent: rub, click - Extremities Extremities: pulses symmetrical, No edema Peripheral Pulses: within normal limits - Abdominal General gastrointestinal: Present: soft, non-tender, non-distended, normal bowel sounds Female genitourinary: Present: normal - Integumentary Integumentary: Present: clear, warm, dry - Musculoskeletal Musculoskeletal: gait normal, strength equal bilaterally - Psychiatric Psychiatric: appropriate mood/affect, intact judgment & insight - Neurologic Neurologic: CNII-XII intact, moves all extremities - Additional findings Additional findings: Patient resting in bed, reports feeling well, denies any complaints or concerns at this time. FF, ML, U/2, vaginal bleeding is small, patient denies any heavy bleeding or clots. She reports pain is well controlled with medications ordered. She denies any AREVALO, visual disturbances, RUQ.epigastric pain, SOB, chest pain, difficulty breathing, or any other concerns. DTRs 2+, assessment WNL. Reviewed post delivery H&H with pt, she denies any dizziness or feeling faint with position changes or ambulation. VSSAF. BPs 119-130s/60s-80s post mag discontinuation. Pt understands rx for labatalol ib chart, she is to continue medication at home as ordered, f/u in office for BP check in 1 week. DWP danger signs to report to provider after discharge. Pt reports breast feeding is going well, she denies any breast complaints. She is supplementing with formula as needed. Encouraged to increase water intake and feed on demand. Continue frequent ambulation. Plan Activity: no restrictions Diet: regular, low salt Follow up with: NAVEED BOND CNM [Advanced Practice Nurse] - 7 Days (Congratulations! Please call [phone] to schedule your BP check appointment in 1 week. Call to schedule your son's BP check in 1 week also. Bring prescription EMLA cream with you to his appointment and await further instructions for use. Call sooner with any questions or concerns.) Prescriptions: Lidocain2.5%/Prilocai2.5% [Emla] 5 gm TP ONCE #1 tube Labetalol [Labetalol 200mg TAB] 200 mg PO BID #60 tablet
[2019-01-18] MEDS: NORMODYNE PO SCH (09:44)
[2019-01-18] MEDS: PRENATAL VITAMIN PO SCH (09:44)
[2019-01-18] MEDS: COLACE PO SCH (09:44)
[2019-01-18 13:00] VITALS: BP 149/79
== END 2019-01-18 14:00 | disposition home or self-care (01) | DRG 775 ==
LOC: TRG 11:36 → LD 13:07 → OB 01-17 18:54
PROVIDERS: ADMIT Obstetrics & Gynecology; ATTEND Obstetrics & Gynecology
PROC: 10E0XZZ Delivery of Products of Conception, External Approach (ICD-10-PCS; principal; 2019-01-16)
PROC: 3E0R3BZ Introduction of Anesthetic Agent into Spinal Canal, Percutaneous Approach (ICD-10-PCS; 2019-01-16)
PROC: 00HU33Z Insertion of Infusion Device into Spinal Canal, Percutaneous Approach (ICD-10-PCS; 2019-01-16)
PROC: 3E0234Z Introduction of Serum, Toxoid and Vaccine into Muscle, Percutaneous Approach (ICD-10-PCS; 2019-01-17)
DX: O42.92 Full-term premature rupture of membranes, unspecified as to length of time between rupture and onset of labor (principal); O24.420 Gestational diabetes mellitus in childbirth, diet controlled; O69.81X0 Labor and delivery complicated by cord around neck, without compression, not applicable or unspecified; O99.824 Streptococcus B carrier state complicating childbirth; O11.4 Pre-existing hypertension with pre-eclampsia, complicating childbirth; O99.344 Other mental disorders complicating childbirth; F41.9 Anxiety disorder, unspecified; Z37.0 Single live birth; Z3A.37 37 weeks gestation of pregnancy; Z23 Encounter for immunization
CPT/HCPCS: 36415; 81001; 82565; 82962; 83615; 83735; 84450; 84460; 84550; 85014; 85018; 85027; 86592; 86850; 86900; 86901; 87086; 88307; G0378; J0290; J0360; J0610; J2590; J3010; J3475; J7120

== ENCOUNTER 2019-01-20 16:49 | Inpatient (IN) | payer OTHER ==
[2019-01-20] MEDS ORDERED: MAGNESIUM SULFATE 4GM/100ML 4 GM/100 ML BAG IV ONE (17:48)
[2019-01-20] MEDS ORDERED: MAGNESIUM SULFATE 40GM/1000ML 40 GM/1,000 ML BAG IV SCH (18:00)
[2019-01-20 18:29] LABS: Hematocrit 33.2 % (30.3-42.9); Hemoglobin 10.9 gm/dl (10.1-14.3); Mean Corpuscular HGB Conc 33 % (30-34); Mean Corpuscular Volume 83 fl (79-97); Platelet Count 233 K/mm3 (140-440); Red Blood Count 4.01 M/mm3 (3.65-5.03); Red Cell Distribution Width 14.5 % (13.2-15.2)
[2019-01-20] MEDS: NORMODYNE PO SCH (18:34)
[2019-01-20] MEDS: LACTATED RINGERS 1,000 ML IV SCH (18:35)
[2019-01-20 19:01] LABS: Alanine Aminotransferase 19 units/L (7-56); Uric Acid 6.2 mg/dL (3.5-7.6)
[2019-01-20 19:06] LABS: Bacteria,Urine 1+ /HPF (Negative); Bilirubin,Urine NEG (Negative); Blood,Urine LG (Negative); Color,Urine Yellow (Yellow); Mucus,Urine FEW /HPF; Urobilinogen,Urine < 2.0 mg/dL (<2.0)
[2019-01-20 19:07] LABS: RBC,Urine > 182.0 /HPF (0.0-6.0); WBC,Urine > 182.0 /HPF (0.0-6.0)
--- NOTE | 2019-01-20 19:31 | History and Physical Report ---
History of Present Illness Date of examination: 01/20/19 Date of admission: 01/20/19 17:27 Chief complaint: 4 days PP s/p - sent from office for elevated BP History of present illness: Patient is 4 days s/p with mag infustion x 24 hrs post delivery for elevated BPs. She was discharged from [facility] 2 days ago, stable condition, to continue 200mg PO labetalol BID. She presents to OB office with c/o severe AREVALO and chest tightening. BPs 160-170/90-100 in office. Sent to [facility] for direct admission per Dr. Elizalde. Menstrual History Regularity: regular Menses every: 28 days Duration: 7 LMP: 05/07/2018 LMP reliability: month known LMP character: normal test type: urine test Date: 07/14/2018 BC at conception: none Planned ? yes EDC Calculations LMP: 02/11/2019 EDC Confirmation: 02/11/2019 Gestational Age: 9 5/7 weeks Past History : 2 Term Births: 0 Premature Births: 1 Living Children: 1 Para: 1 Mult. Births: 0 Prev : 0 Prev. attempt? 0 Aborta: 0 Elect. Ab: 0 Spont. 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 of genital herpes: no Rash, Viral, or Febrile illness since last LMP? no Varicella/Chicken Pox Status: Immunized TB Risk: no Genetic History Congenital Heart Defect: Mom: no Dad: no Farheen Disease: Mom: no Dad: no Thalassemia Mom: no Dad: no Neural Tube Defect Mom: no Dad: no Down's Syndrome Mom: no Dad: no Moise-Sachs Mom: no Dad: no Sickle Cell Disease/Trait Mom: no Dad: no Hemophilia Mom: no Dad: no Muscular Dystrophy Mom: no Dad: no Cystic Fibrosis Mom: no Dad: no Rogers Chorea Mom: no Dad: no Mental Retardation Mom: no Dad: no Fragile X Mom: no Dad: no Other Genetic/Chromosomal Disorder Mom: no Dad: no Child w/other defect Mom: no Dad: no Enviromental Exposures Xray Exposure: no Medication, drug, or alcohol use since LMP: no Chemical/Other Exposure: no Exposure to Cat Liter: no Hx of Parvovirus (Fifth Disease): no Occupational Exposure to Children: none Active Medications: None Current Allergies (reviewed today): No known allergies Past History Past Medical History: other (see H&P) Past Surgical History: other (see H&P) 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 (see H&P) Family/Genetic History: other (see H&P) Social history: other (see H&P) - Obstetrical History : 2 Para: 2 Number of Living Children: 2 Medications and Allergies Allergies Allergy/AdvReac Type Severity Reaction Status Date / Time No Known Allergies Allergy Verified 11/09/16 12:25 Home Medications Medication Instructions Recorded Confirmed Last Taken Type Albuterol Sulfate [Ventolin HFA] 2 puff IH Q4H PRN #1 hfa.aer.ad 11/09/16 Unknown Rx Sulfamethoxazole/Trimethoprim 1 each PO BID #14 tablet 11/09/16 Unknown Rx [Bactrim DS TAB] Metoclopramide [Reglan] 10 mg PO TID PRN #21 tab 12/03/17 Unknown Rx traMADol [Ultram] 50 mg PO Q6HR PRN #15 tablet 12/03/17 Unknown Rx ALBUTEROL Inhaler(NF) [VENTOLIN 2 puff IH Q6H PRN #1 device 05/03/18 Unknown Rx Inhaler(NF)] predniSONE [Deltasone] 3 tab PO QDAY 4 Days #12 tab 05/03/18 Unknown Rx Ondansetron [Zofran Odt] 4 mg PO Q8HR PRN #15 tab.rapdis 07/04/18 Unknown Rx Glycerin 1 each RC DAILY PRN #10 supp.rect 08/06/18 Unknown Rx Nitrofurantoin [place]/M-Cryst 100 mg PO BID 7 Days #14 capsule 08/06/18 Unknown Rx [Macrobid CAP] Polyethylene Glycol 3350 [Miralax] 17 gm PO BID #1 powder 08/06/18 Unknown Rx Promethazine [Phenergan] 25 mg MT Q8HR PRN #10 supp.rect 08/06/18 Unknown Rx Nitrofurantoin [place]/M-Cryst 100 mg PO BID #14 capsule 09/06/18 Unknown Rx [Macrobid 100 mg Capsule] Labetalol [Labetalol 200mg TAB] 200 mg PO BID #60 tablet 01/18/19 Unknown Rx Lidocain2.5%/Prilocai2.5% [Emla] 5 gm TP ONCE #1 tube 01/18/19 Unknown Rx Active Meds: Active Medications Lactated Ringer's (Lactated Ringers) 1,000 mls @ 125 mls/hr IV DIRECT TERE Last Admin: 01/20/19 18:35 Dose: 125 mls/hr Documented by: Magnesium Sulfate (Magnesium Sulfate 40gm/1000ml) 40 gm in 1,000 mls @ 50 mls/hr IV DIRECT TERE Labetalol HCl (Normodyne) 300 mg PO BID [facility] Last Admin: 01/20/19 18:34 Dose: 300 mg Documented by: Review of Systems All systems: negative Eyes: other (dizziness) Cardiovascular: chest pain ("heaviness" worse when taking a deep breath in), high blood pressure, other Breasts: normal, Genitourinary: vaginal bleeding (lochia, small, pink) Rectal Exam: hemorrhoids - Vital Signs Vital signs: Vital Signs Pulse Pulse Ox 65 89 01/20/19 17:48 01/20/19 17:48 Temp Pulse Resp BP Pulse Ox 97.9 F 74 16 166/88 0 L 01/20/19 18:37 01/20/19 19:21 01/20/19 18:37 01/20/19 19:21 01/20/19 18:10 - Physical Exam Breasts: Positive: normal, Cardiovascular: Regular rate, Normal S1, Normal S2 Lungs: Positive: Clear to auscultation, Normal air movement Abdomen: Positive: normal appearance, soft, normal bowel sounds. Negative: distention, tenderness Genitourinary (Female): Positive: normal external genitalia Vulva: both: normal Vagina: Positive: normal moisture, discharge (lochia) Cervix: Positive: lesion, discharge Uterus: Positive: normal size, normal contour. Negative: other (below U) Adnexa: both: normal Anus/Rectum: Positive: normal perianal skin, hemorrhoids. Negative: rectal mass Extremities: Positive: normal Deep Tendon Reflex Grade: Normal +2 Results Result Diagrams: 01/20/19 18:20 01/20/19 18:20 Abnormal lab results 01/20/19 01/20/19 01/20/19 Range/Units 18:20 18:20 18:32 MCH 27 L (28-32) pg Lactate Dehydrogenase 373 H (91-180) units/L Urine WBC (Auto) > 182.0 H (0.0-6.0) /HPF U Epithel Cells (Auto) 15.0 H (0-13.0) /HPF All other labs normal. Assessment and Plan PPD 4 s/p . Patient sent from office for elevated BPs and c/o chest pain/heaviness. Serial BPs, PIH labs, PO labetalol, ekg, cxr ordered, see EMR. Consult with Dr. Elizalde to determine POC pending results and assessment.
--- NOTE | 2019-01-20 20:15 | XRay Report ---
CHEST 1 VIEW INDICATION / CLINICAL INFORMATION: chest pain. COMPARISON: None available. FINDINGS: SUPPORT DEVICES: None. HEART / MEDIASTINUM: No significant abnormality. LUNGS / PLEURA: No significant pulmonary or pleural abnormality. No pneumothorax. ADDITIONAL FINDINGS: No significant additional findings. IMPRESSION: 1. No acute findings. Signer Name: Hipolito Simmons MD Signed: 01/20/2019 8:10 PM Workstation Name: [id number]
[2019-01-21] MEDS: LACTATED RINGERS 1,000 ML IV SCH ×2 (02:06→18:33)
--- NOTE | 2019-01-21 06:09 | Progress Note ---
Assessment and Plan - Patient Problems (1) Pre-eclampsia, Onset Date: ~01/17/19 Current Visit: No Status: Acute Plan to address problem: Pt sitting up in bed pumping breast milk She states she feels much better "My headache is gone, no chest tightness, and my swelling is going away." BPs 160-120/90-70 DTRs 2+, minimal edema LE 1+ MGSO4 continues @ 2gm/hr P: continue POC as ordered Subjective Date of service: 01/21/19 (pt states she feels so much better Denies AREVALO and no chest pain) Principal diagnosis: Day# 5 S/P w/PP PreE; MGSO4 @ 2gm/hr, Labetalol 300mg BID Objective - Constitutional Vitals: Vital Signs - 12hr 01/20/19 01/20/19 01/20/19 18:06 18:10 18:24 Temperature Pulse Rate 75 61 77 Respiratory Rate Blood Pressure 162/89 141/86 Blood Pressure [Left] O2 Sat by Pulse 0 L Oximetry 01/20/19 01/20/19 01/20/19 18:30 18:34 18:36 Temperature Pulse Rate 77 75 Respiratory Rate Blood Pressure 141/86 148/89 Blood Pressure 148/89 [Left] O2 Sat by Pulse Oximetry 01/20/19 01/20/19 01/20/19 18:37 18:51 18:59 Temperature 97.9 F Pulse Rate 73 72 Respiratory 16 Rate Blood Pressure 162/92 171/98 Blood Pressure [Left] O2 Sat by Pulse Oximetry 01/20/19 01/20/19 01/20/19 19:08 19:11 19:21 Temperature Pulse Rate 75 71 74 Respiratory Rate Blood Pressure 166/90 158/90 166/88 Blood Pressure [Left] O2 Sat by Pulse Oximetry 01/20/19 01/20/19 01/20/19 19:31 19:41 19:51 Temperature Pulse Rate 73 76 76 Respiratory Rate Blood Pressure 165/89 148/81 155/86 Blood Pressure [Left] O2 Sat by Pulse Oximetry 01/20/19 01/20/19 01/20/19 20:01 20:11 20:21 Temperature Pulse Rate 75 81 86 Respiratory Rate Blood Pressure 158/85 154/82 142/72 Blood Pressure [Left] O2 Sat by Pulse Oximetry 01/20/19 01/20/19 01/20/19 20:31 20:41 20:51 Temperature Pulse Rate 82 84 90 Respiratory Rate Blood Pressure 158/86 140/69 156/80 Blood Pressure [Left] O2 Sat by Pulse Oximetry 01/20/19 01/20/19 01/20/19 21:01 21:11 21:21 Temperature Pulse Rate 82 88 85 Respiratory Rate Blood Pressure 145/73 148/78 156/76 Blood Pressure [Left] O2 Sat by Pulse Oximetry 01/20/19 01/20/19 01/20/19 21:31 21:41 21:51 Temperature Pulse Rate 85 85 83 Respiratory Rate Blood Pressure 146/68 159/93 151/78 Blood Pressure [Left] O2 Sat by Pulse Oximetry 01/20/19 01/20/19 01/20/19 22:01 22:11 22:21 Temperature Pulse Rate 88 86 90 Respiratory Rate Blood Pressure 150/76 151/72 146/74 Blood Pressure [Left] O2 Sat by Pulse Oximetry 01/20/19 01/20/19 01/20/19 22:27 22:31 22:32 Temperature Pulse Rate 71 86 87 Respiratory Rate Blood Pressure 150/72 Blood Pressure [Left] O2 Sat by Pulse 84 97 Oximetry 01/20/19 01/20/19 01/20/19 22:37 22:41 22:42 Temperature Pulse Rate 89 91 H 88 Respiratory Rate Blood Pressure 144/73 Blood Pressure [Left] O2 Sat by Pulse 97 98 Oximetry 01/20/19 01/20/19 01/20/19 22:47 22:51 22:52 Temperature Pulse Rate 90 91 H 100 H Respiratory Rate Blood Pressure 158/90 Blood Pressure [Left] O2 Sat by Pulse 98 97 Oximetry 01/20/19 01/20/19 01/20/19 22:57 23:01 23:02 Temperature Pulse Rate 94 H 85 88 Respiratory Rate Blood Pressure 157/86 Blood Pressure [Left] O2 Sat by Pulse 98 97 Oximetry 01/20/19 01/20/19 01/20/19 23:07 23:11 23:12 Temperature Pulse Rate 92 H 92 H 88 Respiratory Rate Blood Pressure 152/86 Blood Pressure [Left] O2 Sat by Pulse 98 97 Oximetry 01/20/19 01/20/19 01/20/19 23:17 23:21 23:22 Temperature Pulse Rate 91 H 90 92 H Respiratory Rate Blood Pressure 125/60 Blood Pressure [Left] O2 Sat by Pulse 97 94 97 Oximetry 01/20/19 01/20/19 01/20/19 23:27 23:31 23:32 Temperature Pulse Rate 96 H 91 H 94 H Respiratory Rate Blood Pressure 139/72 Blood Pressure [Left] O2 Sat by Pulse 96 94 97 Oximetry 01/20/19 01/20/19 01/20/19 23:40 23:41 23:45 Temperature Pulse Rate 92 H 88 88 Respiratory Rate Blood Pressure 148/73 Blood Pressure [Left] O2 Sat by Pulse 98 98 Oximetry 01/20/19 01/20/19 01/20/19 23:50 23:51 23:55 Temperature Pulse Rate 91 H 85 92 H Respiratory Rate Blood Pressure 145/76 Blood Pressure [Left] O2 Sat by Pulse 98 97 Oximetry 01/21/19 01/21/19 01/21/19 00:00 00:01 00:05 Temperature Pulse Rate 91 H 88 92 H Respiratory Rate Blood Pressure 146/78 Blood Pressure [Left] O2 Sat by Pulse 97 97 Oximetry 01/21/19 01/21/19 01/21/19 00:10 00:11 00:15 Temperature Pulse Rate 94 H 93 H 91 H Respiratory Rate Blood Pressure 143/74 Blood Pressure [Left] O2 Sat by Pulse 97 97 Oximetry 01/21/19 01/21/19 01/21/19 00:20 00:21 00:25 Temperature Pulse Rate 91 H 91 H 94 H Respiratory Rate Blood Pressure 147/79 Blood Pressure [Left] O2 Sat by Pulse 97 94 96 Oximetry 01/21/19 01/21/19 01/21/19 00:30 00:31 00:35 Temperature Pulse Rate 98 H 90 90 Respiratory Rate Blood Pressure 154/83 Blood Pressure [Left] O2 Sat by Pulse 97 97 Oximetry 01/21/19 01/21/19 01/21/19 00:39 00:40 00:41 Temperature Pulse Rate 94 H 95 H 91 H Respiratory Rate Blood Pressure 154/88 Blood Pressure [Left] O2 Sat by Pulse 94 96 Oximetry 01/21/19 01/21/19 01/21/19 00:45 00:50 00:51 Temperature Pulse Rate 98 H 98 H 93 H Respiratory Rate Blood Pressure 144/78 Blood Pressure [Left] O2 Sat by Pulse 97 97 Oximetry 01/21/19 01/21/19 01/21/19 00:55 01:00 01:01 Temperature Pulse Rate 95 H 94 H 100 H Respiratory Rate Blood Pressure 144/74 Blood Pressure [Left] O2 Sat by Pulse 97 97 Oximetry 01/21/19 01/21/19 01/21/19 01:05 01:10 01:15 Temperature Pulse Rate 92 H 94 H 92 H Respiratory Rate Blood Pressure Blood Pressure [Left] O2 Sat by Pulse 96 96 97 Oximetry 01/21/19 01/21/19 01/21/19 01:20 01:25 01:30 Temperature Pulse Rate 92 H 92 H 92 H Respiratory Rate Blood Pressure Blood Pressure [Left] O2 Sat by Pulse 96 97 97 Oximetry 01/21/19 01/21/19 01/21/19 01:35 01:38 01:40 Temperature Pulse Rate 91 H 97 H 89 Respiratory Rate Blood Pressure 132/66 Blood Pressure [Left] O2 Sat by Pulse 96 93 96 Oximetry 01/21/19 01/21/19 01/21/19 01:45 01:50 01:55 Temperature Pulse Rate 91 H 95 H 96 H Respiratory Rate Blood Pressure Blood Pressure [Left] O2 Sat by Pulse 97 97 98 Oximetry 01/21/19 01/21/19 01/21/19 02:00 02:06 02:07 Temperature Pulse Rate 86 88 Respiratory Rate Blood Pressure Blood Pressure [Left] O2 Sat by Pulse 98 89 97 Oximetry 01/21/19 01/21/19 01/21/19 02:08 02:12 02:17 Temperature Pulse Rate 85 88 88 Respiratory Rate Blood Pressure 155/88 Blood Pressure [Left] O2 Sat by Pulse 97 98 Oximetry 01/21/19 01/21/19 01/21/19 02:22 02:27 02:30 Temperature Pulse Rate 84 85 81 Respiratory Rate Blood Pressure Blood Pressure [Left] O2 Sat by Pulse 97 98 94 Oximetry 01/21/19 01/21/19 01/21/19 02:32 02:37 02:38 Temperature Pulse Rate 84 86 86 Respiratory Rate Blood Pressure 144/81 Blood Pressure [Left] O2 Sat by Pulse 99 98 Oximetry 01/21/19 01/21/19 01/21/19 02:42 02:47 02:52 Temperature Pulse Rate 85 89 89 Respiratory Rate Blood Pressure Blood Pressure [Left] O2 Sat by Pulse 97 97 97 Oximetry 01/21/19 01/21/19 01/21/19 02:57 03:02 03:07 Temperature Pulse Rate 90 87 84 Respiratory Rate Blood Pressure Blood Pressure [Left] O2 Sat by Pulse 97 97 97 Oximetry 01/21/19 01/21/19 01/21/19 03:08 03:12 03:13 Temperature Pulse Rate 85 83 86 Respiratory Rate Blood Pressure 158/86 Blood Pressure [Left] O2 Sat by Pulse 93 93 Oximetry 01/21/19 01/21/19 01/21/19 03:17 03:18 03:22 Temperature Pulse Rate 83 89 86 Respiratory Rate Blood Pressure Blood Pressure [Left] O2 Sat by Pulse 98 94 97 Oximetry 01/21/19 01/21/19 01/21/19 03:27 03:32 03:37 Temperature Pulse Rate 89 86 90 Respiratory Rate Blood Pressure Blood Pressure [Left] O2 Sat by Pulse 97 98 98 Oximetry 01/21/19 01/21/19 01/21/19 03:38 03:42 03:47 Temperature Pulse Rate 86 88 86 Respiratory Rate Blood Pressure 140/79 Blood Pressure [Left] O2 Sat by Pulse 93 96 97 Oximetry 01/21/19 01/21/19 01/21/19 03:52 03:57 04:02 Temperature Pulse Rate 88 87 87 Respiratory Rate Blood Pressure Blood Pressure [Left] O2 Sat by Pulse 97 96 97 Oximetry 01/21/19 01/21/19 01/21/19 04:07 04:08 04:12 Temperature Pulse Rate 87 85 86 Respiratory Rate Blood Pressure 132/72 Blood Pressure [Left] O2 Sat by Pulse 97 94 98 Oximetry 01/21/19 01/21/19 01/21/19 04:17 04:22 04:27 Temperature Pulse Rate 91 H 78 81 Respiratory Rate Blood Pressure Blood Pressure [Left] O2 Sat by Pulse 98 99 98 Oximetry 01/21/19 01/21/19 01/21/19 04:32 04:37 04:39 Temperature Pulse Rate 78 84 80 Respiratory Rate Blood Pressure 153/75 Blood Pressure [Left] O2 Sat by Pulse 97 98 Oximetry 01/21/19 01/21/19 01/21/19 04:42 04:47 04:52 Temperature Pulse Rate 80 79 81 Respiratory Rate Blood Pressure Blood Pressure [Left] O2 Sat by Pulse 98 98 99 Oximetry 01/21/19 01/21/19 01/21/19 04:57 05:02 05:07 Temperature Pulse Rate 81 81 Respiratory Rate Blood Pressure Blood Pressure [Left] O2 Sat by Pulse 98 98 87 Oximetry 01/21/19 01/21/19 01/21/19 05:12 05:17 05:22 Temperature Pulse Rate 106 H 91 H 81 Respiratory Rate Blood Pressure Blood Pressure [Left] O2 Sat by Pulse 72 L 98 98 Oximetry 01/21/19 01/21/19 01/21/19 05:27 05:32 05:37 Temperature Pulse Rate 80 81 78 Respiratory Rate Blood Pressure Blood Pressure [Left] O2 Sat by Pulse 98 98 99 Oximetry 01/21/19 01/21/19 01/21/19 05:38 05:42 05:47 Temperature Pulse Rate 76 79 79 Respiratory Rate Blood Pressure 166/95 Blood Pressure [Left] O2 Sat by Pulse 99 99 Oximetry 01/21/19 01/21/19 01/21/19 05:52 05:57 06:02 Temperature Pulse Rate 81 79 80 Respiratory Rate Blood Pressure Blood Pressure [Left] O2 Sat by Pulse 99 99 98 Oximetry General appearance: Present: no acute distress, well-nourished - EENT Eyes: PERRL, EOM intact ENT: hearing intact, clear oral mucosa Ears: bilateral: normal - Neck Neck: supple, normal ROM - Respiratory Respiratory effort: normal Respiratory: bilateral: CTA - Breasts Breasts: normal (pt pumping moderate amt of milk expressed) - Cardiovascular Rhythm: regular Heart Sounds: Present: S1 & S2. Absent: gallop, rub Extremities: pulses intact, normal color, Full ROM Extremity abnormal: edema (1+ below knee and feet bilateral) - Gastrointestinal General gastrointestinal: Present: deferred Rectal Exam: deferred - Genitourinary Female genitourinary: deferred - Integumentary Integumentary: clear, warm, dry - Musculoskeletal Musculoskeletal: 1, strength equal bilaterally - Neurologic Neurologic: moves all extremities - Psychiatric Psychiatric: memory intact, appropriate mood/affect, intact judgment & insight - Labs CBC & Chem 7: 01/20/19 18:20 01/20/19 18:20 Labs: Abnormal lab results 01/20/19 01/20/19 01/20/19 Range/Units 18:20 18:20 18:32 MCH 27 L (28-32) pg Magnesium (1.7-2.3) mg/dL Lactate Dehydrogenase 373 H (91-180) units/L Urine WBC (Auto) > 182.0 H (0.0-6.0) /HPF U Epithel Cells (Auto) 15.0 H (0-13.0) /HPF 01/21/19 Range/Units 03:54 MCH (28-32) pg Magnesium 4.10 H (1.7-2.3) mg/dL Lactate Dehydrogenase (91-180) units/L Urine WBC (Auto) (0.0-6.0) /HPF U Epithel Cells (Auto) (0-13.0) /HPF - Imaging and cardiology EKG: report reviewed (hard copy on chart Nl Sinus Rhythm) Chest x-ray: report reviewed (no abnl findings) Medications & Allergies - Medications Allergies/Adverse Reactions: Allergies No Known Allergies Allergy (Verified 11/09/16 12:25) Home Medications: Home Medications Medication Instructions Recorded Confirmed Last Taken Type Albuterol Sulfate [Ventolin HFA] 2 puff IH Q4H PRN #1 hfa.aer.ad 11/09/16 Unknown Rx Sulfamethoxazole/Trimethoprim 1 each PO BID #14 tablet 11/09/16 Unknown Rx [Bactrim DS TAB] Metoclopramide [Reglan] 10 mg PO TID PRN #21 tab 12/03/17 Unknown Rx traMADol [Ultram] 50 mg PO Q6HR PRN #15 tablet 12/03/17 Unknown Rx ALBUTEROL Inhaler(NF) [VENTOLIN 2 puff IH Q6H PRN #1 device 05/03/18 Unknown Rx Inhaler(NF)] predniSONE [Deltasone] 3 tab PO QDAY 4 Days #12 tab 05/03/18 Unknown Rx Ondansetron [Zofran Odt] 4 mg PO Q8HR PRN #15 tab.rapdis 07/04/18 Unknown Rx Glycerin 1 each RC DAILY PRN #10 supp.rect 08/06/18 Unknown Rx Nitrofurantoin [place]/M-Cryst 100 mg PO BID 7 Days #14 capsule 08/06/18 Unknown Rx [Macrobid CAP] Polyethylene Glycol 3350 [Miralax] 17 gm PO BID #1 powder 08/06/18 Unknown Rx Promethazine [Phenergan] 25 mg OR Q8HR PRN #10 supp.rect 08/06/18 Unknown Rx Nitrofurantoin Monohyd/M-Cryst 100 mg PO BID #14 capsule 09/06/18 Unknown Rx [Macrobid 100 mg Capsule] Labetalol [Labetalol 200mg TAB] 200 mg PO BID #60 tablet 01/18/19 Unknown Rx Lidocain2.5%/Prilocai2.5% [Emla] 5 gm TP ONCE #1 tube 01/18/19 Unknown Rx Active Medications: Generic Name Dose Route Start Last Admin Trade Name Freq PRN Reason Stop Dose Admin Lactated Ringer's 1,000 mls @ 125 mls/hr 01/20/19 18:00 01/21/19 02:06 Lactated Ringers IV 75 mls/hr DIRECT TERE Administration Magnesium Sulfate 40 gm in 1,000 mls @ 50 mls/hr 01/20/19 18:00 01/20/19 21:31 Magnesium Sulfate 40gm/1000ml IV 2 gm/hr DIRECT TERE 50 mls/hr Administration 2 GM/HR Labetalol HCl 300 mg 01/20/19 18:02 01/20/19 18:34 Normodyne PO 300 mg BID TERE Administration
[2019-01-21] MEDS: NORMODYNE PO SCH ×4 (07:15→21:49)
--- NOTE | 2019-01-21 07:27 | Event Note ---
Date: 01/21/19 (sudden spike of BP 170/90-80) Dr Medina and I made aware of elevated BPs Decision to medicate with Apresolin 10mg IV now X single dose. Labetalol increased to 300mg TID Went to room to visit with pt She is c/o breast encouragement Ordered electric breast pump. BP 175/85. Pt is not keeping milk she is pumping and dumping. Will re-eval in one hour.
[2019-01-21] MEDS ORDERED: NORMODYNE PO SCH (08:00)
[2019-01-21] MEDS ORDERED: APRESOLINE IV ONE (08:00)
[2019-01-21] MEDS: TYLENOL PO SCH ×3 (08:53→21:49)
[2019-01-21] MEDS: IBUPROFEN PO SCH ×2 (13:21→18:33)
--- NOTE | 2019-01-21 18:21 | Event Note ---
Date: 01/21/19 (breast feeding baby) pt w/o complaint BP 130-120/80 No AREVALO, blurred vision, chest pain reported. MGSO4 due off @ 2100. Will continue Labetalol 300po TID aware. Mag level due 1800 RN is calling lab
[2019-01-22] MEDS: IBUPROFEN PO SCH (06:54)
[2019-01-22] MEDS: TYLENOL PO SCH (06:54)
[2019-01-22] MEDS: NORMODYNE PO SCH ×2 (10:03→15:34)
--- NOTE | 2019-01-22 10:45 | Event Note ---
Date: 01/22/19 Echo showed moderate pulmonay hypertension. Will consult cardiology at this time to see if there is any futher follow that is needed.
--- NOTE | 2019-01-22 12:38 | Progress Note ---
Assessment and Plan 0830 patient resting comfortably in bed, denies any complaints or concerns. she denies any AREVALO, visual disturbances, chest pain, SOB, difficulty breathing, RUQ or epigastric pain. BPs 110s-140s/60s-80s post mag discontinuation. Will plan for discharge home today pending review of Echo results by Dr. Elizalde Subjective - Subjective Date of service: 01/22/19 Principal diagnosis: Day# 6 S/P w/PP PreE; MGSO4 @ 2gm/hr, Labetalol 300mg BID Interval history: Patient is 4 days s/p with mag infustion x 24 hrs post delivery for elevated BPs. She was discharged from [facility] 2 days ago, stable condition, to continue 200mg PO labetalol BID. She presents to OB office with c/o severe AREVALO and chest tightening. BPs 160-170/90-100 in office. Sent to [facility] for direct admission per Dr. Elizalde. Menstrual History Regularity: regular Menses every: 28 days Duration: 7 LMP: 05/07/2018 LMP reliability: month known LMP character: normal test type: urine test Date: 07/14/2018 BC at conception: none Planned ? yes EDC Calculations LMP: 02/11/2019 EDC Confirmation: 02/11/2019 Gestational Age: 9 5/7 weeks Past History : 2 Term Births: 0 Premature Births: 1 Living Children: 1 Para: 1 Mult. Births: 0 Prev : 0 Prev. attempt? 0 Aborta: 0 Elect. Ab: 0 Spont. Ab: 0 Ectopics: 0 # 1 Delivery date: 11/12/2012 Weeks Gestation: 35+3 Delivery type: Vacuum Anesthesia type: epidural Delivery location: [facility] Infant Sex: male weight: 4.63 Comments: pre-eclampsia/eclampsia Past Medical History: Hx of pre-eclampsia no dx of HTN Past Surgical History: Negative Past Surgical History Past Medical History Surgery (Non-quality assurance specialist): Negative Past Surgical History Abnormal PAP: negative FREDDIE Exposure: negative Infertility: negative Uterine Anomaly: negative Uterine Surgery (not C/S): negative Other Gynecologic Problems: negative Social Hx: Patient is single unemployed Infection History Hx of STD: none HIV Risk Eval: low risk Hepatitis B Risk Eval: low risk Personal hx. of genital herpes: no Rash, Viral, or Febrile illness since last LMP? no Varicella/Chicken Pox Status: Immunized TB Risk: no Genetic History Congenital Heart Defect: Mom: no Dad: no Farheen Disease: Mom: no Dad: no Thalassemia Mom: no Dad: no Neural Tube Defect Mom: no Dad: no Down's Syndrome Mom: no Dad: no Moise-Sachs Mom: no Dad: no Sickle Cell Disease/Trait Mom: no Dad: no Hemophilia Mom: no Dad: no Muscular Dystrophy Mom: no Dad: no Cystic Fibrosis Mom: no Dad: no [place] Chorea Mom: no Dad: no Mental Retardation Mom: no Dad: no Fragile X Mom: no Dad: no Other Genetic/Chromosomal Disorder Mom: no Dad: no Child w/other defect Mom: no Dad: no Enviromental Exposures Xray Exposure: no Medication, drug, or alcohol use since LMP: no Chemical/Other Exposure: no Exposure to Cat Liter: no Hx of Parvovirus (Fifth Disease): no Occupational Exposure to Children: none Active Medications: None Current Allergies (reviewed today): No known allergies Patient reports: appetite normal, voiding normally, pain well controlled, ambulating normally : doing well (on mother's chest, FOC sleeping at bedside) Objective - Vital Signs Latest vital signs: Vital Signs Temp Pulse Resp BP BP Pulse Ox 01/22/19 07:27 97.9 F 84 18 132/79 01/22/19 04:27 98.5 F 80 18 130/73 97 01/21/19 23:30 98.3 F 83 20 117/89 100 01/21/19 22:56 98 H 87 01/21/19 22:55 114 H 85 01/21/19 22:49 85 81 L 01/21/19 22:47 84 98 01/21/19 22:42 83 97 01/21/19 22:41 78 126/70 01/21/19 22:37 82 98 01/21/19 22:32 83 94 01/21/19 22:31 82 122/62 01/21/19 22:30 78 L 01/21/19 22:22 176 H 82 L 01/21/19 22:21 59 L 82 L 01/21/19 22:16 59 L 81 L 01/21/19 22:11 83 141/79 98 01/21/19 22:06 85 98 01/21/19 22:01 82 140/77 98 01/21/19 21:56 86 98 01/21/19 21:51 83 140/76 99 01/21/19 21:49 87 133/70 01/21/19 21:46 86 98 01/21/19 21:41 82 133/70 98 01/21/19 21:36 84 98 01/21/19 21:31 86 130/63 99 01/21/19 21:26 85 99 01/21/19 21:21 85 123/60 98 01/21/19 21:16 85 98 01/21/19 21:12 84 122/60 01/21/19 21:11 85 98 01/21/19 21:06 86 98 01/21/19 21:02 86 119/67 01/21/19 21:01 84 98 01/21/19 20:56 88 98 01/21/19 20:51 85 122/76 98 01/21/19 20:46 84 98 01/21/19 20:41 82 129/78 99 01/21/19 20:36 86 99 01/21/19 20:31 92 H 129/73 98 01/21/19 20:26 89 98 01/21/19 20:21 87 127/74 98 01/21/19 20:16 85 99 01/21/19 20:11 88 125/72 98 01/21/19 20:06 87 98 01/21/19 20:01 88 121/71 97 01/21/19 19:56 85 98 01/21/19 19:51 86 125/67 98 01/21/19 19:46 86 98 01/21/19 19:41 85 125/67 98 01/21/19 19:36 85 98 01/21/19 19:31 83 123/65 98 01/21/19 19:26 85 98 01/21/19 19:21 85 118/60 98 01/21/19 19:16 88 97 01/21/19 19:14 58 L 93 01/21/19 19:10 84 98 01/21/19 19:05 86 98 01/21/19 19:01 86 114/69 01/21/19 19:00 88 98 01/21/19 18:55 90 98 01/21/19 18:51 81 118/69 01/21/19 18:50 86 98 01/21/19 18:45 83 98 09/12/19 18:41 84 117/66 01/21/19 18:40 88 97 01/21/19 18:39 84 116/65 0 L 01/21/19 18:32 73 0 L 01/21/19 18:25 61 0 L 01/21/19 18:22 85 94 01/21/19 18:21 84 132/72 01/21/19 18:17 88 97 01/21/19 18:12 90 94 01/21/19 18:11 90 128/68 01/21/19 18:07 93 H 97 01/21/19 18:02 85 94 01/21/19 18:01 83 126/65 01/21/19 17:57 88 97 01/21/19 17:52 86 95 01/21/19 17:51 85 129/73 01/21/19 17:47 86 97 01/21/19 17:42 83 94 01/21/19 17:41 82 117/65 01/21/19 17:37 88 97 01/21/19 17:32 86 95 01/21/19 17:31 84 127/70 94 01/21/19 17:27 93 H 98 01/21/19 17:22 82 96 01/21/19 17:21 81 125/65 01/21/19 17:17 85 98 01/21/19 17:12 85 95 01/21/19 17:11 85 123/63 01/21/19 17:07 90 99 01/21/19 17:02 89 96 01/21/19 17:01 86 124/64 01/21/19 16:57 91 H 98 01/21/19 16:52 90 95 01/21/19 16:51 87 129/67 01/21/19 16:47 93 H 98 01/21/19 16:42 91 H 95 01/21/19 16:41 89 137/74 01/21/19 16:37 88 98 01/21/19 16:32 84 95 01/21/19 16:31 82 141/75 01/21/19 16:27 83 97 01/21/19 16:22 84 94 01/21/19 16:21 81 135/72 01/21/19 16:17 85 97 01/21/19 16:12 86 95 01/21/19 16:11 85 138/74 01/21/19 16:07 85 99 01/21/19 16:02 85 94 01/21/19 16:01 83 138/76 01/21/19 15:57 84 98 01/21/19 15:52 85 94 01/21/19 15:51 84 141/79 01/21/19 15:47 86 98 01/21/19 15:42 84 97 01/21/19 15:41 83 141/79 01/21/19 15:37 84 99 01/21/19 15:32 86 95 01/21/19 15:31 82 139/81 01/21/19 15:27 80 99 01/21/19 15:22 79 95 01/21/19 15:21 79 131/73 94 01/21/19 15:17 84 98 01/21/19 15:12 83 125/69 98 01/21/19 15:07 93 H 98 01/21/19 15:05 84 139/78 01/21/19 15:02 91 H 97 01/21/19 15:01 89 139/78 01/21/19 15:00 98.5 F 83 18 139/78 01/21/19 14:57 94 H 97 01/21/19 14:51 91 H 141/84 01/21/19 14:50 91 H 98 01/21/19 14:45 82 97 01/21/19 14:41 83 144/82 01/21/19 14:40 83 96 01/21/19 14:35 80 97 01/21/19 14:31 81 140/81 01/21/19 14:30 79 97 01/21/19 14:25 85 98 01/21/19 14:21 80 139/75 01/21/19 14:20 82 96 01/21/19 14:15 84 96 01/21/19 14:11 82 134/76 01/21/19 14:10 83 97 01/21/19 14:05 85 96 01/21/19 14:01 81 137/79 01/21/19 14:00 82 97 01/21/19 13:55 79 97 01/21/19 13:51 79 133/77 01/21/19 13:50 82 98 01/21/19 13:45 80 97 01/21/19 13:41 84 144/82 01/21/19 13:40 85 98 01/21/19 13:35 85 98 01/21/19 13:31 85 143/80 01/21/19 13:30 84 98 01/21/19 13:25 87 98 01/21/19 13:22 90 137/85 01/21/19 13:20 86 98 01/21/19 13:15 83 98 01/21/19 13:11 84 131/72 94 01/21/19 13:10 86 98 01/21/19 13:05 86 98 01/21/19 13:01 88 128/71 01/21/19 13:00 97.7 F 88 20 128/71 98 01/21/19 12:55 83 98 01/21/19 12:51 82 133/73 01/21/19 12:50 87 98 01/21/19 12:45 84 97 01/21/19 12:41 85 130/72 01/21/19 12:40 86 97 01/21/19 12:35 85 97 Intake and Output 01/21/19 01/22/19 01/22/19 23:59 07:59 15:59 Intake Total 4260 480 Output Total 1200 Balance 3060 480 Intake: IV 3000 Lactated Ringers 1,000 ml 2000 @ 125 mls/hr IV DIRECT TERE Rx#:[id number] MAGNESIUM SULFATE 40GM/ 1000 1000ML 40 gm In 1,000 ml @ 2 GM/HR 50 mls/hr IV DIRECT TERE Rx#:[id number] Oral 1260 480 Output: Urine 1200 Void 1200 Other: Total, Intake Amount 1260 480 Total, Output Amount 400 # Bowel Movements 1 - Exam Breasts: Present: normal (no complaints) Cardiovascular: Present: Regular rate, Normal S1, Normal S2 Lungs: Present: Clear to auscultation, Normal air movement Abdomen: Present: normal appearance, soft, normal bowel sounds Uterus: Present: normal, fundal height below umbilicus Extremities: Present: normal Deep Tendon Reflex Grade: Normal +2 - Labs Labs: Abnormal lab results 01/21/19 01/21/19 Range/Units 12:26 19:05 Magnesium 5.30 H 4.50 H (1.7-2.3) mg/dL
--- NOTE | 2019-01-22 17:03 | Consultation ---
History of Present Illness Consult date: 01/22/19 Consult reason: other (pulmonary hypertension) History of present illness: Patient's a 28-year-old woman who is a few days post . Due to hypertension, she was admitted by her senior litigation paralegal for blood pressure management with magnesium. During her course here, an echocardiogram was ordered. Echo showed normal left ventricular systolic function with ejection fraction 55%, but there was the finding of mild pulmonary hypertension. Cardiac consultation was requested for the finding of pulmonary hypertension. The patient has no chest pain, no unusual shortness of breath, no palpitations, no lower extremity edema. She reports no prior cardiac history. She does report that she has chronic lung disease, characterized as intermittent chronic bronchitis, for which she uses hand held inhalers. She denies a history of sleep apnea, and admits to tobacco use in the remote past. EKG is sinus rhythm with nonspecific ST and T-wave changes. Past History Past Medical History: hypertension Social history: other (see H&P) Medications and Allergies Allergies Allergy/AdvReac Type Severity Reaction Status Date / Time No Known Allergies Allergy Verified 11/09/16 12:25 Home Medications Medication Instructions Recorded Confirmed Last Taken Type Albuterol Sulfate [Ventolin HFA] 2 puff IH Q4H PRN #1 hfa.aer.ad 11/09/16 Unknown Rx Sulfamethoxazole/Trimethoprim 1 each PO BID #14 tablet 11/09/16 Unknown Rx [Bactrim DS TAB] Metoclopramide [Reglan] 10 mg PO TID PRN #21 tab 12/03/17 Unknown Rx traMADol [Ultram] 50 mg PO Q6HR PRN #15 tablet 12/03/17 Unknown Rx ALBUTEROL Inhaler(NF) [VENTOLIN 2 puff IH Q6H PRN #1 device 05/03/18 Unknown Rx Inhaler(NF)] predniSONE [Deltasone] 3 tab PO QDAY 4 Days #12 tab 05/03/18 Unknown Rx Ondansetron [Zofran Odt] 4 mg PO Q8HR PRN #15 tab.rapdis 07/04/18 Unknown Rx Glycerin 1 each RC DAILY PRN #10 supp.rect 08/06/18 Unknown Rx Nitrofurantoin [place]/M-Cryst 100 mg PO BID 7 Days #14 capsule 08/06/18 Unknown Rx [Macrobid CAP] Polyethylene Glycol 3350 [Miralax] 17 gm PO BID #1 powder 08/06/18 Unknown Rx Promethazine [Phenergan] 25 mg UT Q8HR PRN #10 supp.rect 08/06/18 Unknown Rx Nitrofurantoin [place]yd/M-Cryst 100 mg PO BID #14 capsule 09/06/18 Unknown Rx [Macrobid 100 mg Capsule] Labetalol [Labetalol 200mg TAB] 200 mg PO BID #60 tablet 01/18/19 Unknown Rx Lidocain2.5%/Prilocai2.5% [Emla] 5 gm TP ONCE #1 tube 01/18/19 Unknown Rx Labetalol [Labetalol 200mg TAB] 300 mg PO TID #90 tablet 01/21/19 Unknown Rx Active Meds: Active Medications Lactated Ringer's (Lactated Ringers) 1,000 mls @ 125 mls/hr IV DIRECT [facility] Last Infusion: 01/21/19 21:41 Dose: Infused Documented by: Labetalol HCl (Normodyne) 300 mg PO TID [facility] Last Admin: 01/22/19 15:34 Dose: 300 mg Documented by: Review of Systems Cardiovascular: no chest pain, no orthopnea, no palpitations, no rapid/irregular heart beat, no edema, no syncope, no lightheadedness, no shortness of breath Physical Examination Vital Signs Pulse Pulse Ox 65 89 01/20/19 17:48 01/20/19 17:48 General appearance: no acute distress HEENT: Positive: PERRL Neck: Positive: neck supple Cardiac: Positive: Reg Rate and Rhythm Lungs: Positive: Decreased Breath Sounds Neuro: Positive: Grossly Intact Abdomen: Positive: Soft Female genitourinary: deferred Skin: Positive: Clear Extremities: Absent: edema Results 01/20/19 18:20 01/20/19 18:20 EKG interpretations - Telemetry EKG Rhythm: Sinus Rhythm Assessment and Plan - Patient Problems (1) Pulmonary hypertension Current Visit: Yes Status: Acute Plan to address problem: 28-year-old woman found with mild pulmonary hypertension, incidental finding on an echocardiogram. Patient's pulmonary artery systolic pressures estimated at 42-45 mmHg. Risk factors for pulmonary hypertension included chronic lung disease, obesity and post status. Patient is asymptomatic. No further workup or management is indicated at the current time. The patient has been advised to follow-up with her guidance counselor for pulmonary function testing as an outpatient, and follow-up in our office for serial pulmonary artery pressure measurements on outpatient echoes as indicated. Otherwise patient is stable for cardiac discharge. She is recommended to follow-up in the office in 3-4 weeks.
--- NOTE | 2019-01-22 18:01 | Discharge Summary ---
Providers - Providers Date of Admission: 01/20/19 17:27 Date of discharge: 01/22/19 Attending physician: RODRIGO BUTT 01/20/19 20:04 Consult to Anesthesiology [CONS] Routine Consulting Provider: STUART ANESTHESIA ROSARIO PENA Reason For Exam: r/o spinal andrade 01/22/19 10:45 Consult to Physician [CONS] Routine Comment: Consulting Provider: ADALID JAMES Physician Instructions: Please evalute if futher managment is needed. Reason For Exam: moderate pulmonary hypertension on echo Primary care physician: PILOT CAPTAIN Hospitalization Reason for admission: other (post elevated blood pressures) Hospital course: Pt was admitted due to elevated blood pressures while being seen in the office. Pt admitted and had MgSO4 and management. Echo showed pulmonary HTN and pt was seen and cleared by cardiology for discharge with outpt follow up recommended. Pt will f/u in this office in one week as well. Condition at discharge: Good Disposition: DC-01 TO HOME OR SELFCARE Plan - Discharge Medications Prescriptions: Labetalol [Labetalol 200mg TAB] 300 mg PO TID #90 tablet - Provider Discharge Summary Additional instructions: [] Smoking cessation referral if applicable(refer to patient education folder for contact #) [] Refer to [facility]'s [facility] Booklet Call your doctor immediately for: * Fever > 100.5 * Heavy vaginal bleeding ( >1 pad per hour) * Severe persistent headache * Shortness of breath * Reddened, hot, painful area to leg or breast * Drainage or odor from incision. * Keep incision clean and dry at all times and follow doctor's instructions regarding bathing/showering - Follow up plan Follow up: MONICA BEAR MD [Primary Care Provider] - 7 Days ADALID JAMES MD [Staff Physician] - 7 Days RODRIGO BUTT MD [Family Provider] - 7 Days
[2019-01-22 20:14] VITALS: BP 130/72
== END 2019-01-22 20:05 | disposition home or self-care (01) | DRG 776 ==
LOC: 3A 16:49 → UNDOADMIN 16:49 → LD 17:27 → OB 01-21 23:22
PROVIDERS: ADMIT Obstetrics & Gynecology; ATTEND Obstetrics & Gynecology
DX: O14.95 Unspecified pre-eclampsia, complicating the puerperium (principal); I27.20 Pulmonary hypertension, unspecified; O99.43 Diseases of the circulatory system complicating the puerperium; Z79.51 Long term (current) use of inhaled steroids
CPT/HCPCS: 36415; 71045; 81001; 82565; 83615; 83735; 84450; 84460; 84550; 85027; 87086; 93005; 93010; 93306; G0378; J0360; J3475; J7120

== ENCOUNTER 2020-02-25 15:26 | Emergency (ER) | payer OTHER ==
[2020-02-25 16:10] VITALS: BP 143/83
== END 2020-02-25 20:45 | disposition left against medical advice (07) ==
LOC: ED 15:26
DX: O21.8 Other vomiting complicating pregnancy (principal); Z3A.12 12 weeks gestation of pregnancy; Z53.21 Procedure and treatment not carried out due to patient leaving prior to being seen by health care provider

== ENCOUNTER 2020-05-11 05:56 | Emergency (ER) | payer OTHER ==
[2020-05-11 05:05] LABS: Hematocrit 34.1 % (30.3-42.9); Hemoglobin 11.9 gm/dl (10.1-14.3); Mean Corpuscular HGB Conc 35 % (30-34); Mean Corpuscular Volume 88 fl (79-97); Platelet Count 290 K/mm3 (140-440); Red Blood Count 3.89 M/mm3 (3.65-5.03)
[2020-05-11 05:10] LABS: Bacteria,Urine 3+ /HPF (Negative); Bilirubin,Urine NEG (Negative); Blood,Urine NEG (Negative); Color,Urine Yellow (Yellow); Mucus,Urine FEW /HPF; Protein,Urine <15 mg/dL mg/dL (Negative)
[2020-05-11 05:24] LABS: Alanine Aminotransferase 18 units/L (7-56); Uric Acid 4.4 mg/dL (3.5-7.6)
[~2020-05-11 05:56] MED LIST: ACETAMINOPHEN 500 MG TAB PO PRN; ALUM-MAG HYDROXIDE-SIMETHICONE 200-200-20MG/5ML ORAL LIQD 30 ML PO PRN; FAMOTIDINE 20 MG/2 ML INJ IV ONE; LACTATED RINGERS 1,000 ML ONE; LACTATED RINGERS 500 ML IV ONE; ONDANSETRON 4 MG/2 ML INJ IV PRN
[2020-05-11 06:10] VITALS: BP 109/73
--- NOTE | 2020-05-11 06:46 | Event Note ---
Date: 05/11/20 (Upper abdominal pain) Pt presents to triage @ 22 + wks with complaints of upper middle abdominal pain. States that the pain woke her up out of her sleep. The pain is sharp in nature and is constant. Pt states that she is not in labor and this does not feel like ctxs. Pt is in bed rocking back and forth and moaning. There is positive . Pt denies vag bleeding, LOF, ctxs. Cervical exam cl/th/hi. Pt was given IV fluids, antacids, and labs were drawn. She had an initial blood pressure of 146/72 with a second blood pressure of 129/72. Labs resulted as normal. Discussed with patient that labs were normal at this time and her blood pressure had decreased to 129/72. She states that she attributes her blood pressure being high to pain. We discussed that we would need to transfer her to the ER for evaluation. Pt agrees to plan of care at this time. She denies AREVALO, blurred vision, spots before her eyes, shortness of breath, and chest pain. Spoke with ER team and patient to be transferred to the ER. Pt is cleared obstetrically. biologist of the ER aware of patient coming to ER for evaluation. Pt was transferred to the ER via wheelchair without difficulty.
== END 2020-05-11 08:05 | disposition left against medical advice (07) ==
LOC: APU 05:56 → ED 05:56 → APU 05:56 → EDSTATUS 05:58 → ED 08:05
DX: O26.892 Other specified pregnancy related conditions, second trimester (principal); R10.9 Unspecified abdominal pain; Z3A.22 22 weeks gestation of pregnancy; Z53.21 Procedure and treatment not carried out due to patient leaving prior to being seen by health care provider
CPT/HCPCS: 36415; 59025; 81001; 82150; 82565; 83615; 83690; 84450; 84460; 84550; 85027; 87086; 96360; 96374; 96375; 96376; J2405; J7120

== ENCOUNTER 2020-06-16 11:56 | Outpatient (CLI) | payer OTHER ==
[2020-06-16] MEDS ORDERED: LACTATED RINGERS 1,000 ML IV SCH (12:45)
[2020-06-16] MEDS ORDERED: TERBUTALINE 1 MG/1 ML INJ SUB-Q SCH (13:00)
[2020-06-16 13:06] LABS: Bacteria,Urine 4+ /HPF (Negative); Bilirubin,Urine NEG (Negative); Blood,Urine SM (Negative); Color,Urine Amber (Yellow); Mucus,Urine 2+ /HPF; Urobilinogen,Urine < 2.0 mg/dL (<2.0)
[2020-06-16 13:07] LABS: Hematocrit 39.9 % (30.3-42.9); Hemoglobin 14.2 gm/dl (10.1-14.3); Mean Corpuscular HGB Conc 36 % (30-34); Mean Corpuscular Volume 87 fl (79-97); Platelet Count 238 K/mm3 (140-440); Red Blood Count 4.58 M/mm3 (3.65-5.03); Red Cell Distribution Width 13.8 % (13.2-15.2)
[2020-06-16 13:31] LABS: Alanine Aminotransferase 16 units/L (7-56); Uric Acid 3.9 mg/dL (3.5-7.6)
--- NOTE | 2020-06-16 15:37 | Ultrasound Report ---
ULTRASOUND ABDOMEN, COMPLETE INDICATION: epigastric pain. COMPARISON: No relevant prior imaging study available. FINDINGS: Pancreas: No significant abnormality. Abdominal Aorta: Normal size. IVC: No significant abnormality. Liver: The liver measures 15.3 cm in length. No significant abnormality. Normal hepatopedal blood fl ow in the main portal vein. Gallbladder: Cholelithiasis without gallbladder wall thickening. Bile ducts: No significant abnormality. Common bile duct was not visualized. Kidneys: Right: 13.6 cm in length. No significant abnormality. Left: 12.1 cm in length. No signif icant abnormality. Spleen: No significant abnormality. Free fluid: None. Additional Findings: None. IMPRESSION: 1. No acute abnormality identified. 2. Cholelithiasis. CBD was not visualized on this exam. Signer Name: Michele Salamanca MD Signed: 06/16/2020 3:32 PM Workstation Name: [id number]
[2020-06-16 15:50] VITALS: BP 128/77
--- NOTE | 2020-06-16 17:12 | Event Note ---
Date: 06/16/20 (Pt feeling better) Pt was sent to triage from the office with c/o upper abdominal pain mostly on the right side, blurred vision, and spots before her eyes during her office visit. Consulted with Dr. Elizalde. Labs and an abdominal u/s was obtained. Labs and blood pressures have been WNL. monitor strip was category 1 throughout triage visit, with one contraction seen that patient did not feel. Abdominal u/s with no significant abnormalities. Cholelithiasis noted, no gallstones noted. Reviewed u/s findings with patient. We discussed that she will need to follow a low fat diet. No greasy foods, fast food. Increase diet rich in fruits and veggies. Of note, pt was eating [employer] (Cheese burger, large fries) during triage stay. Pt also with UTI, Rx sent to pharmacy. Before discharge home pt denies AREVALO, blurred vision, spots before her eyes, shortness of breath, chest pain, vaginal bleeding, ctxs, LOF. Pt encouraged to keep her scheduled appointment in the office. Pt verbalized understanding of all these instructions.
== END 2020-06-16 17:37 | disposition home or self-care (01) ==
LOC: TRG 11:56 → APU 11:59 → TRG 17:37
PROVIDERS: ATTEND Obstetrics & Gynecology
DX: O13.2 Gestational [pregnancy-induced] hypertension without significant proteinuria, second trimester (principal); Z3A.27 27 weeks gestation of pregnancy
CPT/HCPCS: 36415; 59025; 76700; 81001; 82565; 83615; 84450; 84460; 84550; 85027; 87086

== ENCOUNTER 2020-07-21 11:43 | Outpatient (CLI) | payer OTHER ==
[2020-07-21] MEDS ORDERED: LACTATED RINGERS 500 ML IV ONE (12:18)
[2020-07-21] MEDS ORDERED: TERBUTALINE 1 MG/1 ML INJ SUB-Q ONE ×2 (14:07→15:32)
[2020-07-21] MEDS ORDERED: D5W/LACTATED RINGERS 1,000 ML IV SCH (15:00)
[2020-07-21 15:25] VITALS: BP 150/70
[2020-07-21] MEDS ORDERED: LACTATED RINGERS 1,000 ML IV SCH (15:30)
--- NOTE | 2020-07-22 14:26 | Ultrasound Report ---
US OB BPP wo non-stress INDICATION / CLINICAL INFORMATION: non reassuring FH strip. TECHNIQUE: Transabdominal. Duplex Color Doppler used: Yes. COMPARISON: None available FINDINGS: heart tones: 161 Positioning: Cephalic Biophysical Profile: breathing movements: 2 movements:2 posture and tone:2 Qualitative amniotic fluid volume: 2 IMPRESSION: 1. Biophysical profile is 8 of 8 Signer Name: Everton Johnson MD Signed: 07/21/2020 5:44 PM Workstation Name: [id number]
== END 2020-07-21 15:46 | disposition home or self-care (01) ==
LOC: TRG 11:43 → APU 11:44 → TRG 15:46
PROVIDERS: ATTEND Obstetrics & Gynecology
DX: O62.9 Abnormality of forces of labor, unspecified (principal); O24.419 Gestational diabetes mellitus in pregnancy, unspecified control; O13.9 Gestational [pregnancy-induced] hypertension without significant proteinuria, unspecified trimester; Z3A.31 31 weeks gestation of pregnancy
CPT/HCPCS: 76819; 96372; J3105; J7120

== ENCOUNTER 2020-07-28 12:02 | Outpatient (CLI) | payer OTHER ==
[2020-07-28 12:29] VITALS: BP 123/63
== END 2020-07-28 14:23 | disposition home or self-care (01) ==
LOC: TRG 12:02 → APU 12:04 → TRG 14:23
PROVIDERS: ATTEND Obstetrics & Gynecology
DX: Z34.93 Encounter for supervision of normal pregnancy, unspecified, third trimester (principal); Z3A.33 33 weeks gestation of pregnancy
CPT/HCPCS: 59025

== ENCOUNTER 2020-07-29 22:51 | Observation (INO) | payer OTHER ==
[2020-07-29] MEDS ORDERED: SODIUM CHLORIDE 0.9% 1000 ML 1,000 ML IV ONE (22:59)
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
[2020-07-30 00:02] LABS: Basophils % (Auto) 0.4 % (0.0-1.8); Eosinophils % (Auto) 0.3 % (0.0-4.3); Hematocrit 34.9 % (30.3-42.9); Hemoglobin 12.1 gm/dl (10.1-14.3); Lymphocytes # (Auto) 2.6 K/mm3 (1.2-5.4); Lymphocytes % (Auto) 24.4 % (13.4-35.0); Mean Corpuscular HGB Conc 35 % (30-34); Mean Corpuscular Volume 85 fl (79-97); Monocytes # (Auto) 0.7 K/mm3 (0.0-0.8); Monocytes % (Auto) 6.3 % (0.0-7.3); Platelet Count 271 K/mm3 (140-440); Red Blood Count 4.12 M/mm3 (3.65-5.03); Red Cell Distribution Width 13.5 % (13.2-15.2)
[2020-07-30 00:10] LABS: INR 0.92 (0.87-1.13)
[2020-07-30 00:11] LABS: Partial Thromboplastin Time 24.7 Sec. (24.2-36.6)
[2020-07-30 00:15] LABS: Blood Urea Nitrogen 7 mg/dL (7-17); Calcium 8.7 mg/dL (8.4-10.2); Hemolysis Index 5
[2020-07-30 00:22] LABS: BUN/Creatinine Ratio 12
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
[2020-07-30] MEDS ORDERED: TERBUTALINE 1 MG/1 ML INJ SUB-Q ONE ×2 (01:04→01:57)
[2020-07-30] MEDS ORDERED: fentaNYL 100 MCG/2 ML INJ ONE (01:06)
[2020-07-30] MEDS ORDERED: fentaNYL 100 MCG/2 ML INJ IV ONE (01:12)
[2020-07-30] MEDS ORDERED: LACTATED RINGERS 1,000 ML IV SCH (01:15)
[2020-07-30] MEDS ORDERED: ONDANSETRON 4 MG/2 ML INJ IV PRN (02:42)
[2020-07-30] MEDS ORDERED: ACETAMINOPHEN 325 MG TAB PO PRN (02:42)
[2020-07-30] MEDS ORDERED: DOCUSATE SODIUM 100 MG CAP PO PRN (02:42)
[2020-07-30] MEDS ORDERED: diphenhydrAMINE 25 MG CAP PO PRN (02:42)
[2020-07-30] MEDS ORDERED: FAMOTIDINE 20 MG/2 ML INJ IV SCH ×2 (02:51→10:00)
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
[2020-07-30] MEDS: FAMOTIDINE 20 MG/2 ML INJ IV SCH ×2 (03:02→09:16)
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
[2020-07-30 09:54] VITALS: BP 125/71
[2020-07-30] MEDS ORDERED: PRENATAL VIT27-FE FUMARATE-FOLIC ACID VIT TAB PO SCH (10:00)
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
== END 2020-07-30 10:00 | disposition home or self-care (01) ==
LOC: EDSTATUS 23:28 → TRG 23:33 → LD 23:33 → TRG 07-30 02:42 → LD 07-30 02:42
PROVIDERS: ADMIT Obstetrics & Gynecology; ATTEND Obstetrics & Gynecology
DX: O98.513 Other viral diseases complicating pregnancy, third trimester (principal); U07.1 COVID-19; O99.891 Other specified diseases and conditions complicating pregnancy; R10.9 Unspecified abdominal pain; M79.605 Pain in left leg; M79.604 Pain in right leg; O60.03 Preterm labor without delivery, third trimester; O24.419 Gestational diabetes mellitus in pregnancy, unspecified control; Z3A.34 34 weeks gestation of pregnancy; Z79.82 Long term (current) use of aspirin; V49.9XXA Car occupant (driver) (passenger) injured in unspecified traffic accident, initial encounter; Y93.89 Activity, other specified; Y92.89 Other specified places as the place of occurrence of the external cause; Y99.8 Other external cause status
CPT/HCPCS: 36415; 73590; 76815; 76819; 80048; 82962; 85025; 85610; 85730; 86850; 86900; 86901; 96361; 96372; 96374; 96376; 99291; G0378; J3010; J3105; J7030; U0003; 76805

== ENCOUNTER 2020-08-08 17:35 | Observation (INO) | payer OTHER ==
[2020-08-08] MEDS ORDERED: LACTATED RINGERS 1,000 ML ONE (18:39)
[2020-08-08] MEDS ORDERED: LACTATED RINGERS 1,000 ML IV SCH ×2 (18:45→20:15)
[2020-08-08] MEDS ORDERED: MAGNESIUM HYDROXIDE (MOM) ORAL LIQD UDC PO PRN (19:14)
[2020-08-08] MEDS ORDERED: ALUM-MAG HYDROXIDE-SIMETHICONE 200-200-20MG/5ML ORAL LIQD 30 ML PO PRN (19:14)
[2020-08-08] MEDS ORDERED: ONDANSETRON 4 MG/2 ML INJ IV PRN (19:14)
[2020-08-08] MEDS ORDERED: ACETAMINOPHEN 500 MG TAB PO PRN (19:14)
--- NOTE | 2020-08-08 19:33 | History and Physical Report ---
History of Present Illness Date of examination: 08/08/20 ( labor) Date of admission: 08/08/20 Chief complaint: I've been kareem since last night (08/07/20). They are getting stronger so I came to the hospital. History of present illness: Pt states that she has been having lower abdominal pain since the night of 08/07. Today the pain became worse, so she called the office and was told to come to triage for evaluation. EDC Confirmation: 09/07/2020 Gestational Age: 35.5 wks on admission Past History : 3 Term Births: 0 Premature Births: 2 Living Children: 2 Para: 2 Mult. Births: 0 Prev : 0 Prev. attempt? 0 Aborta: 0 Elect. Ab: 0 Spont. Ab: 0 Ectopics: 0 # 1 Delivery date: 11/12/2012 Weeks Gestation: 35+3 Delivery type: Vacuum Anesthesia type: epidural Delivery location: [facility] Infant Sex: male weight: 4.63 Comments: pre-eclampsia/eclampsia # 2 Delivery date: 01/16/2019 Weeks Gestation: 36 Delivery type: Vaginal Anesthesia type: epidural Delivery location: [facility] Sex: male weight: 6.44 Comments: CHtn;GDM;Pre-E Past Medical History: Reviewed history from 07/14/2018 and no changes required: Hx of pre-eclampsia no dx of HTN Past Surgical History: Reviewed history from 07/14/2018 and no changes required: negative Past Medical History Anesthesia Complications: negative Anemia: negative Autoimmune Disorder: negative Bleeding Disorder: negative Blood Transfusions: negative Breast Disease: negative Diabetes: negative Heart Disease: negative Hypertension: negative Hepatitis/Liver Disease: negative Kidney Disease/UTI: negative Neurologic/Epilepsy/Migraines: negative Phlebitis/Varicosities: negative Psychiatric: negative Pulmonary Disease/Asthma: negative Thyroid Disease: negative Hospitalizations: negative Surgery (Non-dismantler): negative Abnormal PAP: negative FREDDIE Exposure: negative Infertility: negative Uterine Anomaly: negative Uterine Surgery (not C/S): negative Other Gynecologic Problems: negative Social Hx: Patient is single unemployed Infection History Hx of STD: trich HIV Risk Eval: low risk Hepatitis B Risk Eval: low risk Personal hx. of genital herpes: no Partner hx. of genital herpes: no Rash, Viral, or Febrile illness since last LMP? no Varicella/Chicken Pox Status: Immunized TB Risk: no Genetic History Congenital Heart Defect: Mom: no Dad: no Farheen Disease: Mom: no Dad: no Thalassemia Mom: no Dad: no Neural Tube Defect Mom: no Dad: no Down's Syndrome Mom: no Dad: no Moise-Sachs Mom: no Dad: no Sickle Cell Disease/Trait Mom: no Dad: no Hemophilia Mom: no Dad: no Muscular Dystrophy Mom: no Dad: no Cystic Fibrosis Mom: no Dad: no Edmonson Chorea Mom: no Dad: no Mental Retardation Mom: no Dad: no Fragile X Mom: no Dad: no Other Genetic/Chromosomal Disorder Mom: no Dad: no Child w/other defect Mom: no Dad: no Enviromental Exposures Xray Exposure: no Medication, drug, or alcohol use since LMP: no Chemical/Other Exposure: no Exposure to Cat Liter: no Hx of Parvovirus (Fifth Disease): no Occupational Exposure to Children: none Current Allergies (reviewed today): No known allergies Past History Past Medical History: other (State pre eclampsia with pregnancies, but no diagnosis of cHTN. Also GDM with all pregnancies. 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 History: trichomonas Family/Genetic History: none Social history: no significant social history - Obstetrical History Expected Date of Delivery: 09/07/20 Actual Gestation: 35 Week(s) 5 Day(s) : 3 Para: 2 Hx # Term Pregnancies: 0 Number of Pregnancies: 2 (Hx of deliveries at 35 & 36 weeks.) Spontaneous Abortions: 0 Induced : 0 Number of Living Children: 2 Medications and Allergies Allergies Allergy/AdvReac Type Severity Reaction Status Date / Time No Known Allergies Allergy Verified 11/09/16 12:25 Home Medications Medication Instructions Recorded Confirmed Last Taken Type Aspirin [Adult Aspirin] 1 tab PO DAILY 05/11/20 05/11/20 1 Day Ago History ~05/10/20 Vit-Fe Fumar-FA [ 1 tab PO DAILY 05/11/20 05/11/20 1 Day Ago History Vitamin] ~05/10/20 Tylenol 500 tab PO Q8H PRN 05/11/20 05/11/20 Unknown History Metoclopramide [Reglan] 10 mg PO ACHS #60 tablet 06/16/20 Unknown Rx Nitrofurantoin Pondera/M-Cryst 100 mg PO Q12HR #10 capsule 06/16/20 Unknown Rx [Macrobid CAP] Active Meds: Active Medications Acetaminophen (Acetaminophen 325 Mg Tab) 1,000 mg PO Q6H PRN PRN Reason: Pain MILD(1-3)/Fever >100.5/AREVALO Al Hydrox/Mg Hydrox/Simethicone (Alum-Mag Hydroxide-Simethicone [phone]/5ml Oral Liqd 30 Ml) 30 ml PO Q6H PRN PRN Reason: Indigestion Docusate Sodium (Docusate Sodium 100 Mg Cap) 100 mg PO Q12H PRN PRN Reason: Constipation Lactated Ringer's (Lactated Ringers) 1,000 mls @ 125 mls/hr IV DIRECT TERE Last Admin: 08/08/20 19:06 Dose: 125 mls/hr Documented by: Lactated Ringer's (Lactated Ringers) 1,000 mls @ 125 mls/hr IV DIRECT TERE Magnesium Hydroxide (Magnesium Hydroxide (Mom) Oral Liqd Udc) 30 ml PO QHS PRN PRN Reason: Laxative Effect Multivitamins/Iron/Calcium ( Gal85-Vv Fumarate-Folic Acid Vit Tab) 1 each PO QDAY TERE Ondansetron HCl (Ondansetron 4 Mg/2 Ml Inj) 4 mg IV Q6H PRN PRN Reason: Nausea And Vomiting Terbutaline Sulfate (Terbutaline 1 Mg/1 Ml Inj) 0.25 mg SUB-Q ONCE ONE Stop: 08/08/20 19:28 Review of Systems All systems: negative - Vital Signs Vital signs: Vital Signs Pulse Pulse Ox 105 H 98 08/08/20 18:26 08/08/20 18:26 Temp Pulse Resp BP Pulse Ox 98.4 F 92 H 16 139/71 98 08/08/20 18:33 08/08/20 19:11 08/08/20 18:33 08/08/20 18:33 08/08/20 19:11 Pt states that she has a AREVALO and spots before her eyes, but this has been occurring for several weeks now. Denies chest pain, upper abdominal pain, and shortness of breath. She also states that she is no longer on blood pressure medication because it was discontinued by [facility]. Consulted with Dr. Elizalde. Will admit to labor and delivery for observation at this time. Pt also denies LOF, and vaginal bleeding. - Physical Exam Breasts: Positive: deferred Cardiovascular: Regular rate Lungs: Positive: Normal air movement Abdomen: Positive: normal appearance, soft Genitourinary (Female): Positive: other (Per RN, pt appears to have "heavy yeast" infection. ) Vagina: Positive: normal moisture Uterus: Positive: normal size, normal contour Extremities: Positive: normal Deep Tendon Reflex Grade: Normal +2 - Obstetrical FHR: category 1 Uterine Contraction Monitor Mode: External Cervical Dilatation: 3 (Per human resources compensation analyst) Cervical Effacement Percentage: 50 station: -3 Uterine Contraction Pattern: Irregular Uterine Tone Measurement Phase: Resting Uterine Contraction Intensity: Mild Results Result Diagrams: 08/08/20 21:12 08/08/20 21:12 All other labs normal. GBS UNKNOWN HBsAg Screen Negative Negative *1 RPR Non Reactive Non Reactive *2 Rubella Antibodies, IgG 14.50 index Immune >0.99 *3 Non-immune <0.90 Equivocal 0.90 - 0.99 Immune >0.99 ABO Grouping AB *4 Rh Factor Positive *5 Antibody Screen Negative Negative *6 Tests: (3) HB Solu + Rflx Frac (940574) Hemoglobin (Hgb) Solubility Negative Negative *55 Tests: (4) HIV Ag/Ab with Reflex ([id number]) HIV Screen 4th Generation wRfx Non Reactive Non Reactive *56 Tests: (5) HCV Ab w/Rflx to Verification ([id number]) ! HCV Ab <0.1 s/co ratio 0.0-0.9 *57 Tests: (6) Comment: ([id number]) ! Comment: SPRCS *58 Non reactive HCV antibody screen is consistent with no HCV infection, unless recent infection is suspected or other evidence exists to indicate HCV infection. Assessment and Plan A: 34 y.o. @ 35.5 wks with contractions. Cervical exam /-3. GDM and cHTN (no meds). - Patient Problems (1) with 35 completed weeks gestation Onset Date: ~08/03/20 Current Visit: Yes Status: Acute Plan to address problem: Continuous monitoring. Monitor for s/sx of distress. (2) uterine contractions in third trimester, antepartum Onset Date: ~08/08/20 Current Visit: Yes Status: Acute Plan to address problem: Admit to labor and delivery for observation. Drawn labs. IV fluid bolus. Terb administration. Will monitor for s/sx of advancing labor. (3) Gestational diabetes mellitus (GDM) Current Visit: Yes Status: Acute Qualifiers: Gestational diabetes mellitus control: insulin-controlled Trimester: third trimester Qualified Code(s): O24.414 - Gestational diabetes mellitus in , insulin controlled Plan to address problem: Insulin sliding scale and accuchecks ordered. Monitor for s/sx of hyper and hypoglycemia. Carbohydrate consistent diet ordered. (4) Chronic hypertension during Onset Date: ~08/08/20 Current Visit: No Status: Acute Plan to address problem: Currently not on medications. Will monitor for for s/sx of pre eclampsia.
[2020-08-08] MEDS ORDERED: CLOTRIMAZOLE 1% VAG CREAM 45 GM VG SCH (20:00)
[2020-08-08] MEDS ORDERED: DOCUSATE SODIUM 100 MG CAP PO PRN (20:14)
[2020-08-08] MEDS ORDERED: TERBUTALINE 1 MG/1 ML INJ SUB-Q ONE (20:27)
[2020-08-08] MEDS ORDERED: DEXTROSE 50% IN WATER (25GM) 50 ML SYRINGE IV PRN (20:50)
[2020-08-08 21:24] LABS: Basophils # (Auto) 0.1 K/mm3 (0.0-0.1); Basophils % (Auto) 0.5 % (0.0-1.8); Eosinophils % (Auto) 0.3 % (0.0-4.3); Hematocrit 32.6 % (30.3-42.9); Hemoglobin 11.3 gm/dl (10.1-14.3); Lymphocytes # (Auto) 2.6 K/mm3 (1.2-5.4); Lymphocytes % (Auto) 23.8 % (13.4-35.0); Mean Corpuscular HGB Conc 35 % (30-34); Mean Corpuscular Volume 85 fl (79-97); Monocytes # (Auto) 0.7 K/mm3 (0.0-0.8); Monocytes % (Auto) 6.3 % (0.0-7.3); Platelet Count 261 K/mm3 (140-440); Red Blood Count 3.85 M/mm3 (3.65-5.03); Red Cell Distribution Width 13.6 % (13.2-15.2)
[2020-08-08 21:47] LABS: Albumin 3.2 g/dL (3.9-5); Blood Urea Nitrogen 7 mg/dL (7-17); Calcium 8.4 mg/dL (8.4-10.2); Hemolysis Index 3; Uric Acid 4.3 mg/dL (3.5-7.6)
[2020-08-08 21:52] LABS: Alanine Aminotransferase < 5 units/L (7-56); BUN/Creatinine Ratio 18
[2020-08-08] MEDS ORDERED: INSULIN REGULAR, HUMAN 100 UNITS/1 ML SUB-Q SCH (22:00)
[2020-08-08] MEDS ORDERED: diphenhydrAMINE 50 MG/ML VIAL ONE (23:41)
[2020-08-08] MEDS ORDERED: diphenhydrAMINE 50 MG/ML VIAL IV ONE (23:45)
[2020-08-09 02:51] VITALS: BP 133/78
--- NOTE | 2020-08-09 06:32 | Discharge Summary ---
Providers - Providers Date of Admission: 08/08/20 19:15 Date of discharge: 08/09/20 (pt desires to go home) Attending physician: RODRIGO BUTT Primary care physician: RODRIGO BUTT Hospitalization Reason for admission: ctx Condition: Good Hospital course: uncomplicated ctx Disposition: DC-01 TO HOME OR SELFCARE Final Discharge Diagnosis (Prints w/discharge instructions): False labor - Discharge Diagnoses (1) uterine contractions in third trimester, antepartum Status: Acute Comment: hydrate with water call with >6 ctx/hour Core Measure Documentation - Palliative Care Palliative Care/ Comfort Measures: Not Applicable - Core Measures Any of the following diagnoses?: none - VTE Discharge Requirements Deep Vein Thrombosis/Pulmonary Embolism Present on Admission: No Has pt received <5 days of overlap therapy or INR<2.0: No Anticoagulant overlap therapy prescribed at discharge: No Contraindication No Overlap Therapy order at DC: Not Indicated - Acute [place] Discharge Requirements Aspirin at discharge: No Reason for no aspirin on DC: Medical contraindication ARCHIE/ARB for LVSD if EF <40%: Not Applicable Reason for no ARCHIE/ARB: Medical contraindication Beta juliana at discharge: No Reason for no beta juliana on DC: Medical contraindication Statin for LDL = or >100 mg/dl on DC: Not Applicable Reason for no statin on DC: Medical contraindication - Heart Failure Discharge Requirements ARCHIE/ARB for LVSD if EF <40%: Not Applicable Reason for no ARCHIE/ARB: Medical contraindication Beta juliana at discharge: No Reason for no beta juliana on DC: Medical contraindication - Stroke Discharge Requirements Statin for LDL = or >70 mg/dl on DC: Not Applicable Reason for no statin on DC: Not Indicated Anticoag for atrial fib/atrial flutter: Not Applicable Reason for no anticoag for AF/F on DC: Not Indicated Antithrombotic for ischemic stroke: No Reason for no antithrombotic on DC: Not Indicated Exam - Constitutional Vitals: Temp Pulse Resp BP Pulse Ox 98.6 F 82 18 133/78 98 08/09/20 01:21 08/09/20 06:24 08/08/20 23:50 08/09/20 02:51 08/09/20 06:24 General appearance: Present: no acute distress, well-nourished - EENT Eyes: Present: PERRL ENT: hearing intact, clear oral mucosa - Neck Neck: Present: supple, normal ROM - Respiratory Respiratory effort: normal Respiratory: bilateral: CTA - Cardiovascular Heart Sounds: Present: S1 & S2. Absent: rub, click - Extremities Extremities: pulses symmetrical, No edema Peripheral Pulses: within normal limits - Abdominal General gastrointestinal: Present: soft, non-tender, non-distended, normal bowel sounds Female genitourinary: Present: normal - Integumentary Integumentary: Present: clear, warm, dry - Musculoskeletal Musculoskeletal: gait normal, strength equal bilaterally - Psychiatric Psychiatric: appropriate mood/affect, intact judgment & insight - Neurologic Neurologic: CNII-XII intact, moves all extremities Plan Activity: advance as tolerated Diet: advance as tolerated Additional Instructions: complete pelvic rest Keep appoiment with specialist Follow up with: RODRIGO BUTT MD [Primary Care Provider] - 7 Days (Call with any concerns. Contractions 6 in an hour. 6-8 bottles of water per day)
[2020-08-09] MEDS ORDERED: PRENATAL VIT27-FE FUMARATE-FOLIC ACID VIT TAB PO SCH (10:00)
[2020-08-09] MEDS ORDERED: TERBUTALINE 1 MG/1 ML INJ SUB-Q ONE (23:50)
== END 2020-08-09 07:06 | disposition home or self-care (01) ==
LOC: TRG 17:35 → APU 17:36 → TRG 19:14 → LD 19:15
PROVIDERS: ADMIT Obstetrics & Gynecology; ATTEND Obstetrics & Gynecology
DX: O62.9 Abnormality of forces of labor, unspecified (principal); O24.414 Gestational diabetes mellitus in pregnancy, insulin controlled; O16.3 Unspecified maternal hypertension, third trimester; Z79.82 Long term (current) use of aspirin; Z3A.35 35 weeks gestation of pregnancy
CPT/HCPCS: 36415; 80053; 82565; 82962; 84550; 85025; 86850; 86900; 86901; 96361; 96372; 96374; G0378; J1200; J3105; J7120; 96360

== ENCOUNTER 2020-08-14 01:56 | Outpatient (CLI) | payer OTHER ==
[2020-08-14] MEDS ORDERED: LACTATED RINGERS 100 ML IV ONE (02:21)
[2020-08-14] MEDS ORDERED: TERBUTALINE 1 MG/1 ML INJ SUB-Q SCH (03:00)
[2020-08-14 04:18] LABS: Hematocrit 30.8 % (30.3-42.9); Hemoglobin 10.5 gm/dl (10.1-14.3); Mean Corpuscular HGB Conc 34 % (30-34); Mean Corpuscular Volume 85 fl (79-97); Platelet Count 237 K/mm3 (140-440); Red Blood Count 3.63 M/mm3 (3.65-5.03); Red Cell Distribution Width 13.7 % (13.2-15.2)
[2020-08-14 04:23] LABS: Bilirubin,Urine NEG (Negative); Blood,Urine NEG (Negative); Color,Urine Yellow (Yellow); Mucus,Urine FEW /HPF; Protein,Urine <15 mg/dL mg/dL (Negative); Urobilinogen,Urine < 2.0 mg/dL (<2.0)
[2020-08-14 04:42] LABS: Alanine Aminotransferase < 5 units/L (7-56)
[2020-08-14 05:25] VITALS: BP 144/81
[2020-08-14 10:02] LABS: Uric Acid 5.1 mg/dL (3.5-7.6)
== END 2020-08-14 05:45 | disposition home or self-care (01) ==
LOC: TRG 01:56 → APU 02:02 → TRG 05:45
PROVIDERS: ATTEND Obstetrics & Gynecology
DX: O13.3 Gestational [pregnancy-induced] hypertension without significant proteinuria, third trimester (principal); Z3A.36 36 weeks gestation of pregnancy
CPT/HCPCS: 36415; 59025; 81001; 82565; 83615; 84450; 84460; 84550; 85027